=== PATIENT | female | born 1980 | race Caucasian/White ===

== ENCOUNTER 2018-07-24 09:33 | Inpatient (IN) | payer OTHER ==
[~2018-07-24] VITALS: Ht 162.6 cm; Wt 89.3 kg
--- NOTE | ~2018-07-24 | CON ---
[address] [address] CONSULTATION Name: TESSIE VÁSQUEZ Room: [address] IN M.R.#: [id number] Admission: 07/24/18 Attend Phys: Amber Krishnan Discharge: Date of : 82 Report #: [id number] THIS REPORT FOR: //name// CC: Laurent John HISTORY OF PRESENT ILLNESS: The patient is a 38-year-old female. The Neurology service was asked to see for altered mental status. The patient tells me that she came to the hospital because she was having a nervous breakdown. The patient has a history of depression and anxiety and sees Dr. Pacheco who is her psychiatrist. 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 Today, the patient feels that she does have some issue with her memory and she is concerned about it, but the patient was for the most part a very good historian. The patient also states that she feels generally weak. However, she also told me that she has spent a month in bed. When she came to the Emergency Room, she seemed confused. She also complained of fever and abdominal pain. The patient tells me that she lives in her own home with her dog, who is a puggle. When EMS arrived to the patient's home, the home was clean. PAST MEDICAL HISTORY: Depression, anxiety, B12 deficiency, hypothyroidism, morbid obesity. PAST SURGICAL HISTORY: Cholecystectomy, previous Arnold-en-Y surgery. MEDICATIONS: In the hospital include Unasyn 1.5 grams q.6h., vitamin D 10,000 units daily, famotidine 20 mg daily, folic acid 2 mg daily, lactulose 45 mL q.i.d., levothyroxine 37.5 mcg daily, niacin 500 mg daily, Xifaxan 550 mg b.i.d. ALLERGIES: NONSTEROIDAL ANTI-INFLAMMATORIES. VITAL SIGNS: Temperature is 36.4, pulse rate 88, respiratory rate 16, blood pressure 124/86, bedside pulse oximetry 100% on room air. LABORATORY WORK: Hematology: White blood cell count 10.1, hemoglobin 7.2, hematocrit 20.8, MCV 102.6, platelet count 115,000. INR 1.2. Urinalysis: Nitrite positive, bilirubin 3+, urobilinogen 2. Chemistry: Sodium 138, potassium 3.5, chloride 105, carbon dioxide 27, BUN 11, creatinine 0.9, glucose 99, calcium 6.6, phosphorus 4.7, magnesium 1.2, iron 57, TIBC 55, percent saturation 104. Ferritin 328, total bilirubin 1.8, GGT 183, AST 94, ALT 118, alkaline phosphatase 253. Ammonia 17. On admission, the patient's ammonia level was 84. B12 5879. Vitamin D 15. TSH 24.947, free T4 0.63. Toxicology positive [place] [address] CONSULTATION Name: TESSIE VÁSQUEZ Room: [address]#: [id number] Admission: 07/24/18 Attend Phys: Amber Krishnan Discharge: Date of : 82 Report #: [id number] IMAGING STUDIES: MRI of the head dated 07/24/2018 demonstrates it is normal. NEUROLOGIC: Cognition: The patient was alert and oriented to place and time. Immediate recall was 3/3 objects. Remote recall was 2/3 objects. She was able to spell world forward and transposed the L with the R when spelling it backwards. She was able to name and repeat. Cranial nerves 2-12 are grossly intact. Motor exam demonstrates symmetrical strength in all 4 extremities with tone and bulk normal. Reflexes are trace. Coordination reveals intact [id number]. Gait was not tested. IMPRESSION: This patient may have some difficulty with her memory, but for the most part, I found her to be an excellent historian and she did well on a screening cognitive exam. The patient has many factors, which can contribute to difficulty with cognition. This includes depression, anxiety, medication effect, chronic pain and insomnia. This patient does have depression and anxiety and does not feel that it is well controlled. In fact, she told me she came to the hospital because she was having a nervous breakdown. 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 She has a low serum copper level and I have added a ceruloplasmin level. She also has hepatic encephalopathy, although her ammonia level has now returned to baseline. It may still take her a few days before her cognition improves. I will ask Dr. Bolton to see the patient on Sunday morning. It may also be of some benefit to have the patient see the psychiatrist, although perhaps, this will have to be done as an outpatient so that her medications can be adjusted. I thank you for your kind referral of the patient. By: 1109 143Robyn Gaffney DO /nt
[2018-07-24 09:36] VITALS: BP 95/57
[2018-07-24] MEDS ORDERED: TYLENOL325 MG PO (09:43)
[2018-07-24] MEDS ORDERED: XANAX1 MG PO (09:44)
[2018-07-24] MEDS ORDERED: CLOTRIMAZOLE10 MG DISSOLVE (09:44)
[2018-07-24] MEDS ORDERED: DOXEPIN 75 MG C75 MG PO (09:45)
[2018-07-24] MEDS ORDERED: VITAMIN B122500 MCG PO (09:45)
[2018-07-24] MEDS ORDERED: OMEPRAZOLE 20 M20 M1 PO (09:46)
[2018-07-24] MEDS ORDERED: METHYLPHENIDATE10 MG PO (09:46)
[2018-07-24] MEDS ORDERED: IRON325 PO (09:46)
[2018-07-24] MEDS ORDERED: SYNTHROID75 MCG PO (09:47)
[2018-07-24] MEDS ORDERED: WELLBUTRIN XL150 MG PO (09:47)
[2018-07-24 09:57] LABS: HEMATOCRIT 31.3 % (37.0-47.0); HEMOGLOBIN 10.6 gm/dL (12.0-15.0); MCH 34.6 pg (26.0-34.0); MCHC 33.9 g/dL (28.0-37.0); MPV 8.2 fl. (7.2-11.1); NUCLEATED RBCS 0 /100WBC; PLATELET COUNT* 205 thou/uL (150-400); RBC 3.07 mil/uL (4.20-5.00); RDW-CV 15.3 % (10.5-14.5); WBC 11.8 thou/uL (4.0-11.0)
[2018-07-24 10:06] LABS: INR 1.4; PROTIME 14.7 Seconds (9.20-11.50)
[2018-07-24 10:13] LABS: URINE BLOOD NEGATIVE (Negative); URINE CLARITY CLEAR; URINE COLOR BROWN; URINE GLUCOSE-RANDOM TRACE (Negative); URINE KETONES TRACE (Negative); URINE LEUKOCYTES-REFLEX NEGATIVE (Negative); URINE PROTEIN TRACE (Negative); URINE SPECIFIC GRAVITY 1.025 (1.005-1.030)
[2018-07-24 10:14] LABS: ANION GAP 12 mmol/L (7-16); BUN 16 mg/dL (7-18); CALCIUM 7.6 mg/dL (8.5-10.1); CHLORIDE 104 mmol/L (98-107); CO2 22 mmol/L (21-32); CREATININE 2.1 mg/dL (0.6-1.3); GLUCOSE 71 mg/dL (70-99); POTASSIUM 3.9 mmol/L (3.5-5.1); SODIUM 138 mmol/L (136-145); TROPONIN-I LEVEL <0.06 ng/mL (<0.06)
[2018-07-24 10:17] LABS: ICTOTEST (BILI CONFIRMATORY) Positive (Negative); URINE BILIRUBIN 3+ (Negative); URINE NITRITE-REFLEX POSITIVE (Negative)
[2018-07-24 10:19] LABS: BACTERIA-REFLEX >30 Many /HPF (None Seen); CRYSTALS None Seen /LPF (None Seen); HYALINE CASTS 4-10 Moderate /LPF (None Seen); MUCUS 0-3 Light strn/LPF (None Seen); SQUAMOUS 0-3 Few /LPF (0-3); URINE RBC 0-2 Rare /HPF (0-2); URINE WBC-REFLEX 6-15 Few /HPF (0-5)
[2018-07-24 10:23] LABS: ALBUMIN 1.3 g/dL (3.4-5.0); ALKALINE PHOSPHATASE 305 U/L (46-116); NT-PRO BRAIN NAT PEPTIDE 3146 pg/mL (<300); SGOT 142 U/L (15-37); SGPT 154 U/L (30-65); TOTAL BILIRUBIN 3.8 mg/dL (<0.1-1.0); TOTAL PROTEIN 4.9 g/dL (6.4-8.2)
[2018-07-24 10:31] LABS: ABSOLUTE LYMPHOCYTES 0.8 thou/uL (0.8-5.3); ABSOLUTE MONOCYTES 0.5 thou/uL (0.0-1.2); ABSOLUTE NEUTROPHILS 10.5 thou/uL (1.6-8.1); ANISOCYTOSIS 1+; POIKILOCYTOSIS 1+; POLYCHROMASIA 1+
[2018-07-24 12:25] VITALS: BP 118/78
[2018-07-24 13:00] VITALS: BP 107/71
--- NOTE | 2018-07-24 13:11 | NUR ---
PATIENT CAME TO THE FLOOR FROM THE ER VIA CART. MOVED PATIENT OVER VIA EZ SLIDER. PATIENT IS AROUSABLE AND ORIENTETED WHEN PROMPTED. PARENTS ABLE TO ANSWER QUESTIONS FOR PATIENT. VITAL SIGNS ARE STABLE ON ROOM AIR. DOWNEY IS IN PLACE DRAINING DARK YELLOW, SEGUN, CLOUDY URINE. PATIENT IS JAUNDICE WELL. IV IN RIGHT AC WORKS WELL WITH IV ANTIBIOTICS. PATIENT IS STAYING WITH PARENTS FOR THE LAST WEEK SINCE BEING DISCHARGED FROM [facility]. PARENTS STATE THAT PATIENT HAS BEEB "GETTING WEAKER AND WEAKER." ROOM ORIENTATION AND ADMISSION ASSESSMENT DONE. QUESTIONS ANSWERED FOR PARENTS. PATIENT ARROUSABLE ENOUGH TO GO OVER CALL LIGHT AND BED CONTROLS. BED ALARM IS IN PLACE AND CALL LIGHT IS IN REACH, WILL CONTINUE TO MONITOR.
[2018-07-24] MEDS ORDERED: DOXEPIN 75 MG C75 M1 PO (14:03)
--- NOTE | 2018-07-24 15:01 | NUR ---
RIGHT CEPHALIC VESSEL ACCESSED FOR 5 CAMBODIAN DUAL LUMEN PICC. LINE PRE-TRIMMED TO 36CM AND ADVANCED TO THE ZERO CHAZ WITH NO RESISTANCE MET. UPPER ARM CIRCUMFERENCE ABOVE INSERTION SITE= 13 1/2". SHERLOCK MAGNET AND 3CG CONFIRMATION OF TIP TERMINATION AT THE CAVOATRIAL JUNCTION. GUIDEWIRE REMOVED, LINE FLUSHED AND INERTION SITE DRESSED. REPORT GIVEN TO ARIADNA OCASIO.
--- NOTE | 2018-07-24 15:35 | NUR ---
PATIENT IS MORE ALERT NOW SEEMS TO STILL HAVE SOME CONFUSION STILL. VITAL SIGNS STABLE OM ROOM AIR. TELE MONITOR IN PLACE AND RUNNING SINUS TACH AT THIS TIME. BED ALARM IS ON, CALL LIGHT IS IN REACH, REPORT PASSED ONTO NEXT NURSE.
--- NOTE | 2018-07-24 15:48 | 2DMMODE ---
[place] [address] 2 D/M-MODE ECHOCARDIOGRAM Name: TESSIE VÁSQUEZ Room: [address] IN [facility]#: [id number] Admission: 07/24/18 Attend Phys: Saad John Discharge: Date of : 82 Date of Service: 07/24/18 1548 Report #: [id number] THIS REPORT FOR: //name// APPROVED REPORT Study performed: 07/24/2018 14:26:50 EXAM: Comprehensive 2D, Doppler, and color-flow Echocardiogram Patient Location: In-Patient Room #: [facility] Status: routine BSA: 1.96 HR: 102 bpm BP: 107/71 mmHg Rhythm: NSR Other Information Study Quality: Good Indications Congestive Heart Failure 2D Dimensions IVSd: 9.24 (7-11mm) LVOT Diam: 22.89 (18-24mm) LVDd: 40.36 mm PWd: 10.00 (7-11mm) Ascending Ao: 31.38 (22-36mm) LVDs: 28.41 (25-40mm) Aortic Root: 30.54 mm Volumes Left Atrial Volume (Systole) LA ESV Index: 16.60 mL/m2 Aortic Valve AoV Peak Shukri.: 1.33 m/s AO Peak Gr.: 7.03 mmHg LVOT Max P.24 mmHg AO Mean Gr.: 3.90 mmHg LVOT Mean P.18 mmHg LVOT Max V: 1.03 m/s AO V2 VTI: 21.34 cm LVOT Mean V: 0.68 m/s SAMINA (VTI): 3.76 cm2 LVOT V1 VTI: 19.50 cm TDI Medial E' Shukri.: 0.11 m/s Lateral E' Shukri.: 0.14 m/[place] [address] 2 D/M-MODE ECHOCARDIOGRAM Name: TESSIE VÁSQUEZ Room: [address] IN ..#: [id number] Admission: 07/24/18 Attend Phys: Saad John Discharge: Date of : 82 Date of Service: 07/24/18 1548 Report #: [id number] Pulmonary Valve PV Peak Shukri.: 0.96 m/s PV Peak Gr.: 3.70 mmHg Left Ventricle The left ventricle is normal size. There is normal LV segmental wall motion. There is normal left ventricular wall thickness. Left ventricular systolic function is normal. The left ventricular ejection fraction is within the normal range. LVEF is 60-65%. Grade I - abnormal relaxation pattern. Right Ventricle The right ventricle is normal size. The right ventricular systolic function is normal. Atria The left atrium size is normal. The right atrium size is normal. Aortic Valve The aortic valve is normal in structure. No aortic regurgitation is present. There is no aortic valvular stenosis. Mitral Valve The mitral valve is normal in structure. There is no mitral valve regurgitation noted. No evidence of mitral valve stenosis. Tricuspid Valve The tricuspid valve is normal in structure. Trace tricuspid regurgitation. Unable to assess PA pressure. Pulmonic Valve The pulmonary valve is normal in structure. There is no pulmonic valvular regurgitation. Great Vessels The aortic root is normal in size. IVC is not well visualized. Pericardium There is no pericardial effusion. <Conclusion> The left ventricle is normal size. There is normal left ventricular wall thickness. Left ventricular systolic function is normal. The left ventricular ejection fraction [place] [address] 2 D/M-MODE ECHOCARDIOGRAM Name: TESSIE VÁSQUEZ Room: [address] IN [facility]#: [id number] Admission: 07/24/18 Attend Phys: Saad John Discharge: Date of : 82 Date of Service: 07/24/18 1548 Report #: [id number] range. LVEF is 60-65%. Grade I - abnormal relaxation pattern. The right ventricle is normal size. The left atrium size is normal. The aortic valve is normal in structure. The mitral valve is normal in structure. The tricuspid valve is normal in structure. There is no pericardial effusion. There is normal LV segmental wall motion. <ELECTRONICALLY SIGNED> By: Corbin Boston MD, FACC 07/24/18 1548 1548 1548 Corbin Boston MD, FAC /INF
[2018-07-24 16:00] VITALS: BP 104/74
--- NOTE | 2018-07-24 16:01 | EKG ---
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: : 1980 Requested By: Rohan Jacobson Order Number: [id number] MD: Corbin Boston Measurements Intervals [place] Rate: 108 P: 43 MT: 127 QRS: -46 QRSD: 102 T: 61 QT: 337 QTc: 452 Interpretive Statements Sinus tachycardia Ventricular trigeminy Left axis deviation Low voltage, extremity and precordial leads Abnormal R-wave progression, early transition No previous ECG available for comparison Electronically Signed On 07-24-2018 16:01:32 CDT by Corbin Boston [email or web address] <ELECTRONICALLY SIGNED> By: Corbin Boston MD, [facility] 07/24/18 1601 1020 1020 Corbin Boston MD, [facility] /EPI
[2018-07-24 16:02] LABS: MAGNESIUM 1.6 mg/dL (1.8-2.4); PHOSPHORUS* 4.6 mg/dL (2.5-4.9)
[2018-07-24 16:28] LABS: % SATURATION 104 % (20-39); IRON 57 ug/dL (50-175)
[2018-07-24 18:59] LABS: DIRECT BILIRUBIN 2.2 mg/dL (<0.1-0.3); TOTAL BILIRUBIN 3.1 mg/dL (<0.1-1.0)
[2018-07-24 19:52] LABS: CALCIUM 7.3 mg/dL (8.5-10.1); CREATININE 1.9 mg/dL (0.6-1.3); PHOSPHORUS* 4.7 mg/dL (2.5-4.9); POTASSIUM 3.9 mmol/L (3.5-5.1)
--- NOTE | 2018-07-24 19:52 | NUR ---
PATIENT RESTING IN BED. PATIENT ORIENTED TO SELF. BED ALARM ON. FAMILY AT BEDSIDE. PATIENT DENIES ANY PAIN. PATIENT WENT FOR MRI OF HEAD WITHOUT INCIDENT. DR RUCKER NOTIFIED OF ABNORMAL LABS AND ORDERED RECEIVED. PATIENT HAS FAIR APPETITE. PATIENT HAS DOWNEY CATHERTER IN PLACE WITH ORANGE URINE OUTPUT. PATIENT DENIES ANY NEEDS AT THIS TIME. CALL LIGHT WITHIN REACH.
[2018-07-24 23:40] VITALS: BP 104/65
[2018-07-25 04:00] VITALS: BP 136/74
[2018-07-25 06:42] LABS: HEMATOCRIT 26.3 % (37.0-47.0); MCH 34.4 pg (26.0-34.0); MCHC 34.1 g/dL (28.0-37.0); MCV 100.9 fL (80.0-100.0); MPV 8.2 fl. (7.2-11.1); RBC 2.61 mil/uL (4.20-5.00); WBC 10.2 thou/uL (4.0-11.0)
[2018-07-25 07:05] LABS: CREATININE 1.8 mg/dL (0.6-1.3); POTASSIUM 3.7 mmol/L (3.5-5.1)
[2018-07-25 08:51] VITALS: BP 100/69
[2018-07-25 10:09] LABS: ALBUMIN 1.1 g/dL (3.4-5.0); DIRECT BILIRUBIN 1.6 mg/dL (<0.1-0.3); TOTAL BILIRUBIN 2.4 mg/dL (<0.1-1.0); TOTAL PROTEIN 4.4 g/dL (6.4-8.2)
[2018-07-25 16:11] LABS: AMP/METHAMP Negative (Negative); BARBITURATES Negative (Negative); BENZODIAZEPINES POSITIVE (Negative); COCAINE Negative (Negative); METHADONE Negative (Negative); OPIATES Negative (Negative); PCP Negative (Negative); THC Negative (Negative)
--- NOTE | 2018-07-25 16:30 | NUR ---
SW met with pt to complete initial assessment, introduce self, and SW role. Pt alert, oriented. Pt lives at home alone but states that her parents support her and assist when they are able. Pt expressed that pt mother asking for HH care to possibly be able to provide care at home. SW explained HH vs private duty care. Pt works from home when she is able. SW to continue to follow to assist with safe dc planning and provide resources when needed.
--- NOTE | 2018-07-25 16:36 | NUR ---
PATIENT IS MORE ALERT TODAY THAN YESTERDAY BUT STILL MAKES NO SENSE AT TIMES WIEH ANSWERING QUESTIONS. NO PAIN TODAY. THERAPY WORKED WITH PATIENT TODAY AND DID WELL. VITAL SIGNS STABLE ON ROOM AIR. CALL LIGHT IS IN REACH, WILL CONTINUE TO MONITOR,
[2018-07-25 17:11] LABS: HEPATITIS B SURFACE AG Negative (Negative)
--- NOTE | 2018-07-25 17:39 | NUR ---
ASSUMED CARE OF PATIENT AT 1700 FROM AMARJIT PRUETT. PATIENT UP IN CHAIR AND REQUESTING TO GO BACK TO BED. PATIENT MAX ASSIST WITH 2, UTILIZING WALKER AND GAIT BELT. TPN AND SCHED ZOSYN REMAINS INFUSING. NO COMPLAINTS AT THIS TIME.
[2018-07-25 18:10] VITALS: BP 121/86
[2018-07-26] VITALS (15 sets, daily range): BP systolic 106–123; BP diastolic 77–87
[2018-07-26 04:06] LABS: HEMATOCRIT 22.6 % (37.0-47.0); HEMOGLOBIN 7.9 gm/dL (12.0-15.0); MCH 35.2 pg (26.0-34.0); MCHC 34.7 g/dL (28.0-37.0); MCV 101.3 fL (80.0-100.0); RBC 2.23 mil/uL (4.20-5.00); RDW-CV 15.2 % (10.5-14.5)
[2018-07-26 04:24] LABS: CREATININE 1.4 mg/dL (0.6-1.3); POTASSIUM 3.8 mmol/L (3.5-5.1)
--- NOTE | 2018-07-26 05:14 | NUR ---
PATIENT ALERT/ORIENTED X2; CONFUSED AND FORGETFUL AT BEGINNING OF SHIFT BUT IS MORE ALERT THIS MORNING AND ABLE TO HOLD CONVERSATION. PT DENIES PAIN/NAUSEA. PT WITH DOUBLE PICC LINE IN UPPER RT ARM WITH TPN INFUSING AT 80ML/HR AND ZOSYN SCHEDULED. PT IS NPO AND IS ABLE TO DO OWN MOUTH CARE WITH SPONGE SWABS. PT WITH ONE VERY LARGE BOWEL MOVEMENT. PT ABLE TO SWALLOW PILLS WITH SMALL SIP OF WATER. PT REPOSITIONED Q2H PER PROTOCAL. PT WITH SCD'S ON LOWER EXTREMITIES. FREQUENTLY USED ITEMS AND CALL LIGHT WITHIN REACH. SIDERAILS UPX3 AND BED ALARM ON. WILL CONTINUE TO MONITOR.
--- NOTE | 2018-07-26 16:04 | NUR ---
SHIFT NOTE - PT OFF UNIT THIS AM FOR TESTING. FAMILY PRESENT AT BEDSIDE THIS AFTERNOON. PT INC OF STOOL THIS AM. WILL CONTINUE TO MONITOR.
--- NOTE | 2018-07-27 08:08 | NUR ---
PATIENT SLEPT PART OF THE NIGHT. PATIENT HAS STILL BEEN CONFUSED AT TIMES. PATIENT HAS BEEN INCONTINENT OF STOOL ABOUT 6 TIMES THIS SHIFT. PATIENT WAS TURNED AND CHANGED ABOUT EVERY TWO HOURS. ABOUT 0400 WENT INTO TURN PATIENT AND SHE HAD PULLED OUT HER PICC LINE. TPN WAS STOPPED AT THIS TIME. ORDER TO PLACE PICC LINE BACK IN WAS RECEIVED THIS MORNING. DOWNEY REMAINS TO DEPENDENT DRAIN. WILL CONTINUE TO MONITOR.
[2018-07-27 08:30] VITALS: BP 118/81
[2018-07-27 09:48] LABS: HEMATOCRIT 22.8 % (37.0-47.0); HEMOGLOBIN 7.8 gm/dL (12.0-15.0); MCH 35.2 pg (26.0-34.0); MCHC 34.3 g/dL (28.0-37.0); MCV 102.5 fL (80.0-100.0); MPV 8.3 fl. (7.2-11.1); RBC 2.23 mil/uL (4.20-5.00); WBC 8.6 thou/uL (4.0-11.0)
[2018-07-27 10:11] LABS: CALCIUM 6.7 mg/dL (8.5-10.1); POTASSIUM 3.3 mmol/L (3.5-5.1)
--- NOTE | 2018-07-27 10:58 | NUR ---
ASSUMED CARE OF PT AT 0700. PT IN BED RESTING WITH EYES CLOSED. PT A&O X1-2, PT CURRENTLY INCONTINENT OF BOWEL. PT PULLED PICC LINE FROM [facility] AT APPX 0400 THIS MORNING. NURSE ON SECURITY DELIVERY SPECIALIST INFORMED NURSE ELECTRICAL ENGINEERING TECHNOLOGIST, PICC NURSE TO COME PLACE NEW LINE SOMETIME TODAY.CONT ON LACTULOSE. PT IS Q2 TURN.WILL CONT TO MONITOR. THIS NURSE PROVIDED PT EDUCATION ON USE OF CALL LIGHT AGAIN. 1050 NURSE ELECTRICAL ENGINEERING TECHNOLOGIST CALLED AND PICC NURSE IS ON THE WAY TO PLACE NEW LINE.
--- NOTE | 2018-07-27 13:24 | NUR ---
CONSULTED TO REPLACE A PICC THE PATIENT DISCONTINUED OVER THE NIGHT. PATIENT IS ON TPN AND LINE IS APPROPRIATE. ORDER AND CONSENT NOTED. THE PROCEDURE WELL BENIFITS AND RISK FOR DVT AND INFECTION DISCUSSED AND SHE VERBALIZED UNDERSTANDING. THE LEFT UPPER ARM BRACHIAL WAS WIDLEY PATENT. A #5F DOUBLE LUMEN POWER PICC WAS PLACED AFTER A BEDSIDE TIMEOUT WAS COMPLETE PER HOSPITAL POLICY. THE LINE WAS TRIMMED TO 43CM AND ADVANCED WITHOUT DIFFICULTY. LINE CONFIRMED WITH 3CG AT 2CM EXTERNAL. LINE SECURED AND RELEASED FOR USE
[2018-07-27 17:02] VITALS: BP 120/85
[2018-07-28] VITALS: BP 106/78
[2018-07-28 04:03] LABS: ABSOLUTE BASOPHILS 0.1 thou/uL (0.0-0.2); ABSOLUTE EOSINOPHILS 0.1 thou/uL (0.0-0.7); ABSOLUTE LYMPHOCYTES 1.8 thou/uL (0.8-5.3); ABSOLUTE MONOCYTES 0.9 thou/uL (0.0-1.2); ABSOLUTE NEUTROPHILS 7.2 thou/uL (1.6-8.1); BASOPHILS 1.2 %; EOSINOPHILS 1.1 %; HEMATOCRIT 20.8 % (37.0-47.0); HEMOGLOBIN 7.2 gm/dL (12.0-15.0); LYMPHOCYTES 17.6 %; MCH 35.7 pg (26.0-34.0); MCHC 34.8 g/dL (28.0-37.0); MCV 102.6 fL (80.0-100.0); MONOCYTES 8.5 %; MPV 8.1 fl. (7.2-11.1); NUCLEATED RBCS 1 /100WBC; PLATELET COUNT* 115 thou/uL (150-400); POLYS 71.6 %; RBC 2.03 mil/uL (4.20-5.00); RDW-CV 14.8 % (10.5-14.5); WBC 10.1 thou/uL (4.0-11.0)
[2018-07-28 04:12] LABS: CALCIUM 6.6 mg/dL (8.5-10.1); CREATININE 0.9 mg/dL (0.6-1.3); MAGNESIUM 1.2 mg/dL (1.8-2.4); POTASSIUM 3.5 mmol/L (3.5-5.1); TOTAL BILIRUBIN 1.8 mg/dL (<0.1-1.0); TOTAL PROTEIN 4.5 g/dL (6.4-8.2)
[2018-07-28 04:16] LABS: INR 1.2; PROTIME 12.4 Seconds (9.20-11.50)
[2018-07-28 07:22] VITALS: BP 124/86
--- NOTE | 2018-07-28 07:49 | NUR ---
PATIENT SLEPT MOST OF THE NIGHT. PATIENT PULLED OUT IV ONCE THIS SHIFT. IV WAS PUT BACK IN THIS MORNING. IV ANTIBIOTIC WAS GIVEN ORDERED. PATIENT HAD NO COMPLAINTS OF PAIN. PATIENT CONTINUES TO HAVE SEVERAL STOOLS FROM LACTULOSE. WILL CONTINUE TO MONITOR.
--- NOTE | 2018-07-28 12:02 | CON ---
[address] [address] CONSULTATION Name: FAHADTESSIE Room: [address] ADM IN M.R.#: [id number] Admission: 07/24/18 Attend Phys: Amber Krishnan Discharge: Date of : 82 Report #: [id number] THIS REPORT FOR: //name// CC: Dr. Laurent John MD DATE OF SERVICE: 07/28/2018 PULMONARY CONSULTATION LOCATION: Room 315. ATTENDING PHYSICIAN: Dr. John and Dr. Thierno Sheth PRIMARY CARE PHYSICIAN: Dr. Laurent Weeks at [place]. INDICATION FOR CONSULTATION: Pulmonary infiltrates. CLINICAL SUMMARY: The patient is a 38-year-old female, a remote smoker with a history of a gastric bypass 4 and 6 years ago. She was just recently discharged from [facility] in [facility] for weakness and possible urinary tract infection. The patient's parents seemed to think she is having a change in mental status and she was somewhat encephalopathic and had some mild abdominal pain. She had no cough, fever, chills, sweats or hemoptysis. She denies any diarrhea to me. She has very blank expression and is really not sure why she is in the hospital. She has been weak at home, not sure if she gets up and walks around very much. She can barely move her legs in bed or move her knees up to the chest when I asked her to. She denies aspiration to me, states her appetite has been fair. Denies any diarrhea or increase in stools. PAST MEDICAL HISTORY: She has had some transaminitis, had a possible sepsis, urinary tract infection, encephalopathy, etiology unclear, altered mental status. Her benzodiazepine screen was positive in her urine. She does not remember taking benzodiazepines. ALLERGIES: SHE HAS ALLERGIES OR INTOLERANCES TO NONSTEROIDALS WHICH GIVE HER ABDOMINAL PAIN. OUTPATIENT MEDICATIONS: Included vitamin B12, ferrous sulfate, omeprazole, for some reason she is taking methylphenidate 10 mg t.i.d. and then levothyroxine 75 mcg daily, bupropion 150 mg daily, takes doxepin 100 mg at bedtime for sleep. On a different list, she is supposedly on alprazolam 1 [place] [address] CONSULTATION Name: FAHADTESSIE Room: [address]#: [id number] Admission: 07/24/18 Attend Phys: mAber Krishnan Discharge: Date of : 82 Report #: [id number] PAST SURGICAL HISTORY: Cholecystectomy in May 2018 at [place], gastric bypass, Arnold-en-Y in 2011, possibly same procedure in [place] in 2013. FAMILY HISTORY: Positive for hypertension. SOCIAL HISTORY: Appears she lives with her parents. She used to smoke about a half pack a day. She did so off and on for 5 years. She states she has been off cigarettes for 10 years. Again, some benzodiazepine use at home and then supposedly drinks 1 or 2 beers weekly, she would not be any more specific than that. REVIEW OF SYSTEMS: Fourteen point review of systems was attempted, reviewed and negative except for pertinent positives noted in HPI. PHYSICAL EXAMINATION: GENERAL: A 38-year-old female with very flat affect. She wonders why I am there in the room talking to her. VITAL SIGNS: Stable, blood pressure is 124/86, heart rate 88, respirations 16, her room air sat was 95%, and temperature is 36.4 degrees. She is 5 feet 3 inches tall, weight is 90 kilograms or 210 pounds, BMI is 34. HEENT: Unremarkable. Mucous membranes are moist. She has metal braces on upper and lower teeth. Pharynx otherwise is clear. NECK: Supple without nodes. CHEST: Shows a few rhonchi at the left lung base that is clear after she takes a breath and cough. CARDIOVASCULAR: Regular rate and rhythm without murmur, gallop or rub. Heart rate is 88. ABDOMEN: Soft, without masses or megaly. EXTREMITIES: She has 1+ edema. No cyanosis or clubbing. NEUROLOGIC: She is alert and oriented x 3. Some muscle weakness and states she cannot move her knees up to her chest wall, has difficulty getting her head and neck and her chest up off the bed just sitting upright. Markedly deconditioned. Nonfocal exam. LABORATORY AND DIAGNOSTIC DATA: From 07/28/2018 shows a hemoglobin of 7.2, white count of 10,100, platelets 115,000. Normal differential. Sodium is 138, potassium is 3.5, carbon dioxide is 27, BUN is 11, creatinine 0.9, calcium is low at 6.6, magnesium is low at 1.2, total bilirubin is 1.8, AST is elevated at 94, ALT is elevated at 118, alk phos elevated 253, albumin is down to 1.0, total protein is 4.5. Chest x-ray and CT of the abdomen shows some patchy left lower lobe infiltrates, no definite consolidation. Lung hughes also are normal. Heart size is normal. Echocardiogram was within normal limits with an LVEF of 60-65%, no pulmonary artery hypertension. No valvular disease. IMPRESSION: 1. Pulmonary infiltrates. [address] [address] CONSULTATION Name: TESSIE VÁSQUEZ Sandor Room: [address] IN M.R.#: [id number] Admission: 07/24/18 Attend Phys: Amber Krishnan Discharge: Date of : 82 Report #: [id number] 2. Altered mental status could be related to benzodiazepines. 3. Elevated transaminase related to protein calorie malnutrition. 4. Prior surgeries. 5. Weakness and deconditioning, etiology unclear. PLAN: The patient does not need bronchoscopy. She is already on IV Unasyn. Would continue to follow. She needs to work on incentive spirometry and get up and move around. I think most of her x-ray findings are attributable to her weight and also to hypoventilation and poor cough effort. She could have an early bronchitis, it is not likely at this time, she is not hypoxic, she does not have a congested cough. Work on incentive spirometry and work on physical therapy with rehab. I would also take her off her methylphenidate not sure why she is on this and on benzodiazepines also. Would decrease the role of benzodiazepines, keep her on doxepin at night at sleep. She had a sleep study from [facility] 6 or 8 years ago, interpreted by Dr. Cat Ochoa, which was within normal limits. She does not have sleep apnea. I do not think she is hypersomnolent during the day and would certainly get her off the methylphenidate. We will see her for one more day and then we will sign off. Thanks again for allowing us to participate in this lady's care. <ELECTRONICALLY SIGNED> By: Bakari Barnes MD 07/28/18 1202 0922 [id number] Barnes MD /nt
--- NOTE | 2018-07-28 14:54 | NUR ---
CONSULTED TO REPLACE A PICC- 3RD PLACEMENT AFTER THE PATIENT DISCONTINUED THE LINES. PICC NEEDED FOR TPN INFUSION. BILATERAL ARMS WITH MULTIPLE BRUISING NOTED. NO SWELLING. THE RIGHT CEPHALIC VEIN IS NON COMPRESSABLE WHICH WAS THE SITE FOR THE 1ST PICC 3 DAYS PRIOR. THE LEFT ARM BRUISED AND TENDER FROM THE LINE THE PATIENT DICONTINUED THIS LAST PM. THE RIGHT UPPER ARM BRACHIAL IS WIDLEY PATENT AND EASILY COMPRESSABLE. A #5F DOUBLE LUMEN POWER PICC WAS PLACED PER HOSPITAL POLICY. LINE WAS TRIMMMED TO 35CM AND ADVANCED WITHOUT DIFFICULTY. LINE CONFIRMED AT 1CM EXTERNAL WITH 3CG. LINE SECURED AND RELEASED FOR USE
[2018-07-28 15:07] LABS: IgA 348 mg/dL (87-352); IgG 1050 mg/dL (700-1600); IgM 165 mg/dL (26-217)
[2018-07-28 15:30] VITALS: BP 116/78
--- NOTE | 2018-07-28 15:36 | NUR ---
ASSESSMENT COMPLETE. PT ALERT AND ORIENTED X4 TODAY. PT HAD NEW PICC IN RIGHT ARM PLACED THIS AFTERNOON. PT DENIES PAIN. TPN STARTED. MAG REPLACED. 1 UNIT TRANSFUSION ORDERED, PT IS SPEAKING WITH MOM BEFORE SIGNING CONSENT, EDUCATION GIVEN. PT DENIES N/V. PT IS ON ROOM AIR, VSS. Q2 TURN. NEW SKIN TEAR FOUND ON SACRUM, PICS DONE IN CHART. PT IS SLEEPING AND HAS NO OTHER CONCERNS. SITTER AT BEDSIDE. SEE ASSESSMENT AND VITALS FOR OTHER DETAILS. CALL LIGHT WITHIN REACH, WILL CONTINUE PLAN OF CARE
[2018-07-28 17:06] LABS: CALCIUM 6.5 mg/dL (8.5-10.1); CREATININE 0.8 mg/dL (0.6-1.3); MAGNESIUM 1.3 mg/dL (1.8-2.4); POTASSIUM 3.2 mmol/L (3.5-5.1)
--- NOTE | 2018-07-28 17:59 | CON ---
[address] [address] CONSULTATION Name: TESSIE VÁSQUEZ Room: [address] IN M.R.#: [id number] Admission: 07/24/18 Attend Phys: Amber Krishnan Discharge: Date of : 82 Report #: [id number] THIS REPORT FOR: //name// CC: Laurent John TYPE OF REPORT: Infectious diseases consultation. HISTORY OF PRESENT ILLNESS: She is a 38-year-old patient who was admitted to [facility] due to failure to thrive. She has been seen by GI Service and Internal Medicine. She was recently hospitalized at [facility] where I saw her on 07/11/2018 with similar symptoms. She has underlying morbid obesity. She has undergone gastric bypass with Arnold-en-Y in 2011 followed by a revision surgery done in [place]. Subsequently, she has lost about 150 pounds and is showing general decline with nausea and vomiting nearly daily. Intermittent abdominal pain. Confusion. She underwent a cholecystectomy on 05/24/2018 without improvement in her symptoms. During her evaluation at [facility], she underwent upper GI, small bowel study, which showed no mucosal changes or obstruction. She underwent an EGD, which showed gastric and duodenal ulcers that were treated locally and placed on antiacid treatment. Had a colonoscopy, which showed no gross abnormalities but a random biopsy showed nonspecific colitis. She had a CT scan, which revealed right upper lobe nodular type infiltrate, indeterminate in etiology as well as hepatic steatosis and a colonic wall thickening. HIV; hepatitis A, B, C and CMV studies were all negative. She initially was treated with antibiotics. Subsequently discharged for GI followup. Now returns with very similar symptoms. No documented fever, chills or sweats. She did undergo a liver biopsy. Those studies are pending. She did undergo CT scan of the abdomen, pelvis and chest, which showed bilateral, more interstitial type infiltrates. This has progressed since her previous study. She has had episodes of confusion. She has pulled several IV catheters out. She has a previous traveled to [facility] in December of this past year. While there, she did develop some malaise and general unwell feeling, which has progressed. She did irregular tourist activities, but nothing out of the ordinary. She has had these similar symptoms for over 6 months. REVIEW OF SYSTEMS: Negative other than what has been described above. Most notable no cough, sputum or chest pain. ALLERGIES: NONSTEROIDAL ANTI-INFLAMMATORIES. MEDICATIONS: As noted on her MAR, which were reviewed. PAST MEDICAL HISTORY: Bariatric surgery, gastroesophageal reflux, cholecystectomy, [place] [address] CONSULTATION Name: TESSIE VÁSQUEZ Room: [address] IN M.R.#: [id number] Admission: 07/24/18 Attend Phys: Amber Krishnan Discharge: Date of : 82 Report #: [id number] FAMILY HISTORY: Noncontributory. SOCIAL HISTORY: Nonsmoker. No significant alcohol intake. She has a pet dog with no HIV risk factors. PHYSICAL EXAMINATION: VITAL SIGNS: Afebrile and hemodynamically stable. GENERAL: She is alert and cooperative and pleasant, in no acute distress other than generalized weakness. EYES: Nonicteric. MOUTH: Without mucositis. NECK: Supple. She was morbidly obese. LUNGS: Clear. HEART: Regular, without murmur. ABDOMEN: Obese, soft and nontender. No masses, although the liver was palpable. EXTREMITIES: No clubbing, cyanosis or edema. NEUROLOGICAL: Cranial nerves intact. Strength in upper and lower extremities normal. Deep tendon reflexes normal, sensation intact, upper and lower extremities. Cranial nerves intact. Mood was normal. LABORATORY STUDIES: CPK 464. Lactate 0.9. Sodium 136, potassium 3.3, bicarbonate 26 and creatinine 1. Hemoglobin 7.8; white count 8.6 and platelet count 113,000. Urine culture E. coli. Blood cultures are negative. Ultrasound shows liver steatosis. CT scan as noted above. IMPRESSION: A 38-year-old with gastric bypass, Arnold-en-Y and multiple issues with associated steatohepatitis anemia, metabolic encephalopathy, malnutrition, bilateral pulmonary infiltrates and I am suspecting aspiration would be most likely, peptic ulcer disease and nonspecific colitis. RECOMMENDATIONS: We will continue aspiration precautions. Continue with Unasyn. Follow up chest x-rays. Await liver biopsy. Await GI evaluation. <ELECTRONICALLY SIGNED> By: Conner Meyer MD 07/28/18 1759 [id number] [id number] Meyer MD /nt
--- NOTE | 2018-07-28 19:18 | NUR ---
AT THIS TIME PATIENT IS REFUSING BLOOD TRANSFUSION. PT SPOKE WITH MOTHER AND THEY DO NOT WANT TODAY. TYPE AND SCREEN COMPLETED.
[2018-07-28 21:00] VITALS: BP 120/70
[2018-07-29 02:06] LABS: ESTIMATED AVERAGE GLUCOSE < 74 mg/dL (()); GLYCOHEMOGLOBIN (HGB A1C) < 4.2 % (4.8-5.6)
[2018-07-29 06:08] LABS: MCH 35.2 pg (26.0-34.0); MCHC 34.2 g/dL (28.0-37.0); MCV 103.1 fL (80.0-100.0); MPV 7.8 fl. (7.2-11.1); RBC 1.6 mil/uL (4.20-5.00); RDW-CV 14.6 % (10.5-14.5); WBC 10.7 thou/uL (4.0-11.0)
[2018-07-29 06:12] LABS: CREATININE 0.7 mg/dL (0.6-1.3); POTASSIUM 3.4 mmol/L (3.5-5.1)
[2018-07-29 06:17] LABS: HEMOGLOBIN 5.7 gm/dL (12.0-15.0)
[2018-07-29 06:21] LABS: HEMATOCRIT 16.5 % (37.0-47.0)
--- NOTE | 2018-07-29 07:26 | NUR ---
PATIENT SLEPT MOST OF THE NIGHT. TPN AND ANTIBIOTICS WERE GIVEN ORDERED. DOWNEY REMAINS TO DEPENDENT DRAIN. HEMOGLOBIN DROPPED TO 5.7 DR. GAMA WAS NOTIFIED PATIENT REFUSED BLOOD YESTERDAY. PATIENT HAS BEEN A 1:1 TO MAKE SURE PATIENT DOES NOT PULL OUT HER PICC LINE TODAY. WILL CONTINUE TO MONITOR.
[2018-07-29 08:00] VITALS: BP 113/76
--- NOTE | 2018-07-29 13:04 | NUR ---
Nutrition: Calorie count hung on door. PLEASE RECORD ALL FOODS/DRINKS THAT PT CONSUMES, AND % OF EACH ITEM EATEN. RD will assess timothy count on Sunday.
[2018-07-29 16:00] VITALS: BP 125/98
[2018-07-29 17:00] VITALS: BP 116/82; BP 117/80; BP 118/81; BP 123/83; BP 138/78
--- NOTE | 2018-07-29 18:09 | NUR ---
SHIFT NOTE - DOWNEY TO DD WAS DISCONTINUED PER . ONE UNIT PRBC'S CURRENTLY INFUSING. WILL CONTINUE TO MONITOR.
[2018-07-29 20:00] VITALS: BP 138/78
[2018-07-29 21:10] LABS: ANA INTERPRETATION Negative (())
[2018-07-30 00:30] VITALS: BP 115/70
[2018-07-30 03:27] VITALS: BP 104/63; BP 105/66; BP 112/67; BP 116/74
[2018-07-30 04:00] VITALS: BP 112/67
--- NOTE | 2018-07-30 07:27 | NUR ---
PATIENT SLEPT WELL DURING THE NIGHT. PT CONTINUES TO HAVE A 1:1 SITTER TO PREVENT HER FROM PULLING AT LINES. PT RECEIVED TWO UNITS OF PRBC DURING THIS SHIFT. THE FIRST UNIT WAS STARTED AT THE END OF DAY SHIFT. AM LABS TO BE DRAWN IN TWO HOURS. PT WITH DOUBLE LUMAN PICC LINE; ABLE TO DRAW/FLUSH WITH NO RESISTANCE. PT WITH TPN INFUSING AT 80ML/HR; ANTIBIOTICS INFUSING PER DR ORDER. PT INCONTINENT OF BOWEL AND BLADDER. PT WITH ONE BOWEL MOVEMENT DURING THIS SHIFT. PT DENIES PAIN/NAUSEA. PT REMAINS CONFUSED AT TIMES. PT TURNED Q2H PER PROTOCAL. FREQUENTLY USED ITEMS AND CALL LIGHT WITHIN REACH. SIDERAILS UPX3 AND BED ALARM ON. WILL CONTINUE TO MONITOR.
[2018-07-30 07:51] VITALS: BP 117/79
[2018-07-30 08:27] LABS: HEMATOCRIT 23.1 % (37.0-47.0); HEMOGLOBIN 7.7 gm/dL (12.0-15.0); MCH 32.6 pg (26.0-34.0); MCHC 33.1 g/dL (28.0-37.0); MCV 98.5 fL (80.0-100.0); MPV 7.7 fl. (7.2-11.1); RBC 2.35 mil/uL (4.20-5.00); RDW-CV 16.9 % (10.5-14.5); WBC 11.9 thou/uL (4.0-11.0)
[2018-07-30 08:30] LABS: CALCIUM 6.7 mg/dL (8.5-10.1); CREATININE 0.5 mg/dL (0.6-1.3); POTASSIUM 3.3 mmol/L (3.5-5.1)
--- NOTE | 2018-07-30 09:56 | CON ---
[address] [address] CONSULTATION Name: TESSIE VÁSQUEZ Room: [address] IN M.R.#: [id number] Admission: 07/24/18 Attend Phys: Amber Krishnan Discharge: Date of : 82 Report #: [id number] THIS REPORT FOR: //name// CC: Laurent John DATE OF SERVICE: 07/29/2018 DIAGNOSIS: Anemia. SUBJECTIVE: A 38-year-old female presented back on July 25 due to generalized weakness in addition to confusion. She was found that prior to this admission to have a UTI. The patient during her hospital stay was found to have elevated LFTs and she underwent CT scan of the abdomen and pelvis, which showed irregular moderate colonic wall thickening compatible with colitis. There was mild enteritis with left lower infiltrates compatible with pneumonia; however, there was diffuse low density throughout the liver, likely acute hepatitis, though acute steatosis could give the same appearance, anasarca with moderate mesenteric edema. The patient, the next day, he underwent MRCP, which showed enlarged fatty liver. There was a lesion of superior liver, possibly hemangioma with a left lower lobe mass or infiltrates and diffuse right colon thickening. CT of the chest confirmed the bilateral multifocal lung consolidation, interstitial infiltrates in the left upper and lower lobes with additional right middle lobe involvements. The patient underwent liver biopsy on July 26. The pathology is still pending. I reviewed her labs. Her hemoglobin was 10.6. However, during her hospital stay, today, her hemoglobin came back as 5.7. The patient has been on intravenous IV fluids in addition to TPN. Hepatitis came back negative. Serologies for immune hepatitis are still pending. The patient at this point continues to have a sitter due to confusion and she pulled her PICC line. PAST MEDICAL HISTORY: Bariatric surgery, GERD, anxiety/depression. PAST SURGICAL HISTORY: Cholecystectomy. SOCIAL HISTORY: No smoking, no alcohol abuse, no drug abuse. FAMILY HISTORY: Noncontributory. ALLERGIES: NSAIDS. MEDICATIONS: Per admission list. PHYSICAL EXAMINATION: VITAL SIGNS: Temperature 36.3, pulse is 100, respirations 15, blood pressure is 125/98, SpO2 was 100% [place] [address] CONSULTATION Name: TESSIE VÁSQUEZ Room: [address]#: [id number] Admission: 07/24/18 Attend Phys: Amber Krishnan Discharge: Date of : 82 Report #: [id number] GENERAL: The patient was lying in bed. She was not in acute distress. LUNGS: Clear to auscultations bilaterally; however, decreased breathing sounds. ABDOMEN: Soft, nontender, nondistended, bowel sounds positive. EXTREMITIES: +1 edema bilaterally. LABORATORY DATA: Today, WBC 10.7, hemoglobin today 5.7, MCV is 103, platelet count 126. PT 12.4, PTT 32.0. Creatinine 0.7. Ferritin was 328, TIBC low 55, saturations high. Total bilirubin was 1.8, direct bilirubin 1.6, AST 94, ALT 118, alkaline phosphatase 253, LDH is 601, B12 5879, folate is 18.2. ASSESSMENT AND PLAN: A 38-year-old female who has been admitted because of transaminitis with possible hepatitis. The patient was evaluated because of macrocytic anemia. Her B12 and folate within normal limits. There is no clear history of alcoholism; however, megaloblastic anemia could be findings with acute liver with significant liver injury, which is most likely the cause of her condition. RECOMMENDATIONS: 1. Agree with transfusion to keep her hemoglobin above 7. 2. We will obtain haptoglobin Deanne test to rule out any possibility of acute hemolytic anemia. 3. Agree with current supplement with B12 and folate. The patient's iron studies showed adequate iron stores. I will also obtain occult blood at stool. We will follow the patient during hospitalization. <ELECTRONICALLY SIGNED> By: Shelbie Smith MD 07/30/18 0956 [id number] [id number] Smith MD /nt
--- NOTE | 2018-07-30 12:07 | NUR ---
SW continuing to follow. Continued possible needs for support and in home resources when pt closer to dc.
[2018-07-30 15:52] VITALS: BP 122/73
--- NOTE | 2018-07-30 17:16 | NUR ---
ASSESSMENT COMPLETE. PT ALERT AND ORIENTED X4 TODAY. K+ REPLACED. PICC IN RIGHT UPPER ARM, TPN INFUSING. PT WILL HAVE EGD TOMORROW WITH DR Ferrer. PT IS RESTING AT THIS TIME. SEE ASSESSMENT AND VITALS FOR OTHER DETAILS. Q2 TURN. SEE ASSESSMENT AND VITALS FOR OTHER DETAILS. CALL LIGHT WITHIN REACH, WILL CONTINUE PLAN OF CARE
[2018-07-30 18:06] LABS: COMPLEMENT-C4 15 mg/dL (14-44)
[2018-07-31] VITALS: BP 116/76
--- NOTE | 2018-07-31 05:04 | NUR ---
PATIENT SLEPT WELL DURING THIS SHIFT. PT TURNE Q2H PER PROTOCAL. PT INCONTINENT OF URINE. PT NOT ABLE TO NOTIFY STAFF WHEN WET. PT HAS BEEN SHOWN MANY TIMES HOW TO USE THE CALL LIGHT BUT SAYS SHE CANNOT REMEMBER. PT HAD DIFFICULTY SWALLOWING A PILL LAST NIGHT SAYING IT WAS STUCK IN HER THROAT AND WAS GIVEN A SALTINE TO ASSIST WITH SWALLOWING PILL. PT HAD TO BE PROMPTED TO CHEW CRACKER AND FOLLOW IT WITH WATER. PT UNABLE TO HOLD CONVERSATION, HAS A FARAWAY GAZE; FLAT AFFECT. PT TURNED Q2H PER PROTOCAL. PT DENIES PAIN/NAUSEA. TPN INFUSING IN DOUBLE PICC LINE IN UPPER RT ARM. ABLE TO DRAW/FLUSH WITH NO RESISTANCE. PT MADE NPO AT MIDNIGHT FOR POSSIBLE EGD TODAY. FREQUENTLY USED ITEMS AND CALL LIGHT WITHIN REACH. SIDERAILS UPX3 AND BED ALARM ON. WILL CONTINUE TO MONITOR.
[2018-07-31 05:09] LABS: VITAMIN B6 (PYRIDOXAL 5-PHOS) < 1.0 ug/L (2.0-32.8)
[2018-07-31 05:24] LABS: HEMATOCRIT 22.4 % (37.0-47.0); HEMOGLOBIN 7.6 gm/dL (12.0-15.0); MCH 33.4 pg (26.0-34.0); MCHC 34.1 g/dL (28.0-37.0); MCV 98.1 fL (80.0-100.0); NUCLEATED RBCS 1 /100WBC; PLATELET COUNT* 122 thou/uL (150-400); RBC 2.29 mil/uL (4.20-5.00); RDW-CV 17.3 % (10.5-14.5)
[2018-07-31 05:44] LABS: ALBUMIN 1.6 g/dL (3.4-5.0); CALCIUM 7.1 mg/dL (8.5-10.1); CREATININE 0.5 mg/dL (0.6-1.3); POTASSIUM 3.8 mmol/L (3.5-5.1); TOTAL BILIRUBIN 1.1 mg/dL (<0.1-1.0); TOTAL PROTEIN 4.7 g/dL (6.4-8.2)
[2018-07-31 06:31] LABS: ESR (SEDRATE) 45 mm/hr (0-20)
[2018-07-31 06:55] LABS: ABSOLUTE EOSINOPHILS 0.7 thou/uL (0.0-0.7); ABSOLUTE LYMPHOCYTES 1.8 thou/uL (0.8-5.3); ABSOLUTE MONOCYTES 0.6 thou/uL (0.0-1.2); ATYPICAL LYMPHS 5 %; METAMYELOCYTES 5 %; PLATELET ESTIMATE ADEQUATE
[2018-07-31 08:03] VITALS: BP 116/76
[2018-07-31 10:03] VITALS: BP 129/69
--- NOTE | 2018-07-31 12:54 | NUR ---
NETWORK ADMINISTRATOR INFORME OF NEED TO SPEAK TO DR ROSENBAUM TO DISCUSS TRANSFER [facility] DOES NOT HAVE BED AVIALABLITY AT THIS TIME. DR STEVE HAD SUGGESTED [facility], BUT THEY DID NOT HAVE ANY BEDS AVIALABLE WELL. DR WEI REQUEST THAT CM ATTEMPT TRANSFER TOMORROW WITH [facility]. CM WILL REMAIN AVAILABLE TO ASSIST AND FOLLOW NEEDED.
[2018-07-31 13:01] VITALS: BP 126/86
[2018-07-31 16:41] VITALS: BP 143/69
--- NOTE | 2018-07-31 16:54 | NUR ---
ASSESSMENT COMPLETE. PT HAD EGD TODAY, SEE DR Ferrer NOTES. PROTONIX GTT STARTED. TPN INFUSING. PT IS Q2 TURN. PT TOLERATING FULL LIQUIDS FOR LUNCH. PT IS ON ROOM AIR, VSS. PT DENIES PAIN AND N/V. SEE ASSESSMENT AND VITALS FOR OTHER DETAILS. CALL LIGHT WITHIN REACH, BED ALARM ON. WILL CONTINUE PLAN OF CARE
[2018-07-31 18:09] LABS: ANA INTERPRETATION Negative (Negative); ANTI-DNA SCREEN <1 IU/mL (0-9)
[2018-08-01 01:03] VITALS: BP 121/76
--- NOTE | 2018-08-01 06:04 | NUR ---
PATIENT AWAKE, ORIENTED TO PERSON DURING THIS SHIFT. PT INCONTINENT OF BOWEL AND BLADDER. PT WITH VERY FLAT AFFECT. PT ASKED IF SHE KNOWS WHEN SHE IS WET OR DIRTY AND SHE NODDED AND REPLIED YES WITH A VOICE BARELY AUDIBLE. PT TOLD TO CALL IF NEEDING BEDPAN OR IF NEEDING CLEANED UP. PT DOES NOT USE CALL LIGHT EVEN AFTER BEING INSTRUCTED. PT GIVEN CARAFATE AND WHEN SHE POURS IT INTO HER MOUTH SHE DOES NOT CLOSE HER MOUTH TO SWALLOW AND IT ROLLS DOWN HER FACE AND NECK. PT HANDED A KLEENEX TO WIPE FACE/NECK BUT GAZES OFF TO THE SIDE UNABLE TO TAKE KLEENEX. PT UNABLE TO ASSIST WITH TURNS BY HOLDING ONTO SIDERAIL AND TURNING TO SIDE HOWEVER PT WAS SEEN TEXTING ON CELL PHONE AND SMILING UNTIL STAFF WALKED INTO ROOM. SHE THEBN BEGAN GAZING OFF TO THE SIDE AGAIN, WITH A FLAT AFFECT. SEVERAL ATTEMPTS MADE TO HAVE A CONVERSATION WITH THIS PATIENT BUT SHE, ON RARE OCCASSION WILL MAKE EYE CONTACT. PT WITH TPN, ANTIBIOTICS AND PROTONIX INFUSING IN RT UPPER PICC LINE ORDERED. ABLE TO DRAW/FLUSH PICC LINES WITH NO RESISTANCE. PT DENIES NEEDS AT THIS TIME. SIDERAILS UPX4, CALL LIGHT WITHIN REACH AND BED ALARM ON. WILL CONTINUE TO MONITOR.
[2018-08-01 08:05] VITALS: BP 105/72
[2018-08-01 16:59] VITALS: BP 136/58
--- NOTE | 2018-08-01 17:14 | NUR ---
[facility] attempted transfer requests to both and [facility] throughout the day today; both requests denied by both hospitals. [facility] dicussed with Dr Arreola. Request/recommendation now is for possible dc to inpt rehab or SNF. SW to continue to follow to assist with safe dc planning.
--- NOTE | 2018-08-01 17:50 | NUR ---
PATIENT RESTING IN BED. PATIENT DENIES ANY PAIN. PATIENT WORKED WITH THERAPY THIS AM AND WAS UP TO CHAIR WITH MODERATE ASSIST. PATIENT HAS BEEN INCONTINENT OF BOWEL AND BLADDER. PATIENT IS ORIENTED TO SELF AND PLACE. PATIENT IS CALM AND COOPERATIVE WITH FLAT AFFECT. PATIENT SEEN BY REHAB PHYSICIAN THIS EVENING. AWAITING REEVALUATION FROM PSYCH. PATIENT DENIES ANY NEEDS AT THIS TIME. BED ALARM ON. CALL LIGHT WITHIN REACH. WILL CONTINUE TO MONITOR.
[2018-08-01 19:30] VITALS: BP 127/71
--- NOTE | 2018-08-01 23:52 | NUR ---
PLACED CHANDLERWIJAN AT 2130
--- NOTE | 2018-08-02 05:21 | NUR ---
ASSUMED PATIENT CARE AT 1900. CORE STRIPPER COMPLETED CHARTED. CHANDLER HERNANDEZ REPLACED AT 0500. NO COMPLAINTS OF PAIN OR DISCOMFORT NOTED. PATIENT RESTED IN BED THROUGH THE NIGHT. HAS A VERY VACANT GAZE AT TIMES AND AT OTHER TIMES PATIENT IS ALERT AND ORIENTED TIMES FOUR. IV PATENT TO FLUIDS AND BLOOD DRAW AT THIS TIME. SEE EMAR FOR MEDICATION ADMINISTRATION. FALL RISK PRECAUTIONS IN PLACE. HOURLY ROUNDING COMPLETED CHARTED.
[2018-08-02 05:27] LABS: HEMATOCRIT 21.3 % (37.0-47.0); HEMOGLOBIN 7.2 gm/dL (12.0-15.0); MCH 33.7 pg (26.0-34.0); MCHC 33.8 g/dL (28.0-37.0); MCV 99.7 fL (80.0-100.0); MPV 7.8 fl. (7.2-11.1); NUCLEATED RBCS 0 /100WBC; PLATELET COUNT* 128 thou/uL (150-400); RBC 2.14 mil/uL (4.20-5.00); RDW-CV 17.7 % (10.5-14.5); WBC 7.2 thou/uL (4.0-11.0)
[2018-08-02 05:34] LABS: ALBUMIN 1.5 g/dL (3.4-5.0); CALCIUM 7.5 mg/dL (8.5-10.1); CREATININE 0.5 mg/dL (0.6-1.3); POTASSIUM 4.2 mmol/L (3.5-5.1); TOTAL BILIRUBIN 0.7 mg/dL (<0.1-1.0); TOTAL PROTEIN 4.7 g/dL (6.4-8.2)
[2018-08-02 05:47] LABS: ABSOLUTE BASOPHILS 0.2 thou/uL (0.0-0.2); ABSOLUTE EOSINOPHILS 0.4 thou/uL (0.0-0.7); ABSOLUTE LYMPHOCYTES 1.4 thou/uL (0.8-5.3); ABSOLUTE MONOCYTES 0.4 thou/uL (0.0-1.2); ABSOLUTE NEUTROPHILS 4.8 thou/uL (1.6-8.1); METAMYELOCYTES 1 %
[2018-08-02 05:48] LABS: PLATELET ESTIMATE DECREASED; POLYCHROMASIA 1+
[2018-08-02 05:49] LABS: ANISOCYTOSIS 1+; POIKILOCYTOSIS 1+; TOXIC GRANULATION Occasional
[2018-08-02 07:45] VITALS: BP 114/72
--- NOTE | 2018-08-02 14:53 | NUR ---
RECEIVED ORDERS FOR ACUTE REHAB. WILL FOLLOW PT THROUGHOUT HOSPITAL STAY. THANK YOU FOR THE REFERRAL.
[2018-08-02 16:00] VITALS: BP 129/79
--- NOTE | 2018-08-02 16:53 | NUR ---
PATIENT UP TO CHAIR WITH PT. MORALES CHANGED NEEDED FOR URINE COLLECTION TO SUCTION. PATIENT PUTTING OUT LARGE AMOUNTS OF URINE. TPN DECREASED TO 40MLS/HR, PATIENT TOLERATING REG DIET. IV ABX CHANGED TO PO AND STARTED THIS SHIFT. C/O HEADACHE THIS AFTERNOON, PRN TYLENOL GIVEN. DR. WEI WAS NOTIFIED OF TELE PSYCH EVAL, ORDERS RECEIVED. NEURO CONS PLACED, NO INTERVENTION AT THIS TIME. ORDERS FOR RECORDS FROM PATIENT PSYCHIATRIST, PATIENT GAVE PHYSICIAN NAME BUT NO RECORDS FOUND. SPOKE WITH PATIENTS MOM AND WILL TRY AND RETRIEVE PHYSICIANS NAME. DR. WEI GIVEN UPDATE. PATIENT DID ENGAGE IN SMALL CONVERSATION THIS SHIFT. INCONTINENT OF BOTH URINE AND STOOL.
--- NOTE | 2018-08-02 19:36 | CON ---
[address] [address] CONSULTATION Name: FAHADTESSIE Room: [address] ADM IN M.R.#: [id number] Admission: 07/24/18 Attend Phys: Amber Krishnan Discharge: Date of : 82 Report #: [id number] THIS REPORT FOR: //name// CC: Moiz Weeks DO Saad John MD REFERRING PHYSICIAN: Saad John MD I have seen and examined and agreed with plan that has been outlined by our nurse practitioner, Bhavana Melara. I also reviewed all the patient's records from her [facility] stay, as well as all the records from this hospital stay. A total of 45 minutes were used to review these records, review scans, laboratory testing etc. At the present time, it is unclear to me what is going on with the patient. She has multitude of issues ongoing at this point in time without a clear etiology for the same. She certainly has some type of infection with regards to pneumonia, but in addition, she has got probably anemia of chronic disease, fatty infiltration of the liver with elevated LFTs and negative serologic workup today. She is more awake after being on lactulose at this point in time, but is still having some issues with some confusion. She is adamant that she had surgery to remove her gallbladder in May of this year, but it is unclear where that was done and what was found. At the present time, I am going to await the results from biopsies and check some additional serologic studies to evaluate her elevated LFTs. In addition, we will begin her on some copper for low copper level that was noted at [facility]. I reviewed her endoscopic reports and records from [facility] and other than gastric bypass, some internal hemorrhoids and some mild diverticulosis, her endoscopic evaluations were unrevealing. We will continue to follow her while she is in the hospital and make further recommendations thereafter. <ELECTRONICALLY SIGNED> By: Nakul Craig DO 08/02/18 [id number] Craig DO /nt
[2018-08-02 20:00] VITALS: BP 126/81
[2018-08-03 03:56] LABS: ABSOLUTE BASOPHILS 0.1 thou/uL (0.0-0.2); ABSOLUTE EOSINOPHILS 0.2 thou/uL (0.0-0.7); ABSOLUTE MONOCYTES 0.9 thou/uL (0.0-1.2); ABSOLUTE NEUTROPHILS 4.3 thou/uL (1.6-8.1); BASOPHILS 1.3 %; EOSINOPHILS 2.4 %; HEMATOCRIT 20.3 % (37.0-47.0); LYMPHOCYTES 16.1 %; MCH 34.3 pg (26.0-34.0); MCHC 34.6 g/dL (28.0-37.0); MCV 99.2 fL (80.0-100.0); MONOCYTES 14.6 %; NUCLEATED RBCS 0 /100WBC; PLATELET COUNT* 127 thou/uL (150-400); POLYS 65.6 %; RBC 2.05 mil/uL (4.20-5.00); RDW-CV 17.5 % (10.5-14.5); WBC 6.5 thou/uL (4.0-11.0)
[2018-08-03 04:18] LABS: ALBUMIN 1.5 g/dL (3.4-5.0); CALCIUM 7.6 mg/dL (8.5-10.1); CREATININE 0.6 mg/dL (0.6-1.3); POTASSIUM 3.8 mmol/L (3.5-5.1); TOTAL BILIRUBIN 0.7 mg/dL (<0.1-1.0); TOTAL PROTEIN 4.8 g/dL (6.4-8.2)
--- NOTE | 2018-08-03 06:35 | NUR ---
ASSUMED PT CARE @ 1930. PT IS ALERT TO SELF TIME AND PLACE. FLAT AFFECT. WILL ANSWER QUESTIONS WITH SHORT ANSWERS. DOES NOT CALL OUT WHEN SHE'S INCONTINENT. BM X2. NO PAIN REPORTED OR OBSERVED. CALL LIGHT IN REACH. HOURLY ROUNDING FOR SAFETY.
[2018-08-03 07:40] VITALS: BP 129/82
[2018-08-03 16:48] VITALS: BP 108/71
--- NOTE | 2018-08-03 16:52 | NUR ---
PATIENT HAD A SMALL VOMITTING EPISODE WHILE EATING BREAKFAST THIS AM, PATIENT DID TOLERATE ENSURE AT LUNCH. INCONTINENT B/B, PURWICK IN PLACE AND CHANGED PER PROTOCOL. TURNED Q2, PATIENT DID SIT UP IN CHAIR THIS SHIFT AFTER WORKING WITH PT. DR. AQUINO REQUESTING COLONOSCOPY TO BE DONE BY GI REGARDING DECREASED HGB. SPOKE WITH DR. LINO AND PATIENT HAD COLONOSCOPY APPROX A MONTH AGO AND RECORDS IN PLACE ON FRONT OF CHART, DR. LINO AWARE. DR. AQUINO NOTIFIED. 24 HOUR URINE COLLECTION FOR COPPER CONTINUES. TPN INFUSING AT 40MLS/HR, IF BAG RUNS DRY D10 TO BE INFUSED PER PROTOCOL. IV CONTINOUS PROTONIX DC'D AND BID PUSHED STARTED. MG INFUSED ORDERED.
[2018-08-03 20:26] VITALS: BP 127/84
[2018-08-04 04:45] LABS: ABSOLUTE BASOPHILS 0.1 thou/uL (0.0-0.2); ABSOLUTE EOSINOPHILS 0.2 thou/uL (0.0-0.7); ABSOLUTE LYMPHOCYTES 1.4 thou/uL (0.8-5.3); ABSOLUTE MONOCYTES 0.9 thou/uL (0.0-1.2); ABSOLUTE NEUTROPHILS 3.2 thou/uL (1.6-8.1); BASOPHILS 1.4 %; LYMPHOCYTES 24.2 %; MCH 33.4 pg (26.0-34.0); MCHC 33.6 g/dL (28.0-37.0); MCV 99.6 fL (80.0-100.0); MONOCYTES 15.5 %; MPV 8.6 fl. (7.2-11.1); NUCLEATED RBCS 0 /100WBC; PLATELET COUNT* 147 thou/uL (150-400); POLYS 55.9 %; RDW-CV 17.5 % (10.5-14.5); WBC 5.7 thou/uL (4.0-11.0)
[2018-08-04 04:55] LABS: HEMOGLOBIN 6.4 gm/dL (12.0-15.0)
[2018-08-04 05:33] LABS: CALCIUM 7.6 mg/dL (8.5-10.1); CREATININE 0.5 mg/dL (0.6-1.3); MAGNESIUM 1.7 mg/dL (1.8-2.4)
--- NOTE | 2018-08-04 07:15 | NUR ---
ASSUMED CARE @ 1919-08/03-SAT.APPEARS SLEEPING FLAT IN BED.BED ALARM ALREADY ON @ 1919.PUREWICK IN PLACE & CONNECTED TO SUCTION.ON 24 HOUR URINE COLLECTION. 2 PORTS PICC LINE HAS GOOD BLOOD RETURN @ 2219 & FLUSHED GOOD.TPN STARTED @ 2222 @ 40 ML/HOUR.AT 2209-PUREWICK CHANGED.CLOGGED BY INC STOOLS.DAILY WEIGHT STARTED TODAY 08/04-SUN.TOOK ALL ROBBY.PUDDING HS SNACK.AT 0454-LAB CALLED FOR CRITICAL RESULTS FOR HGB-6.4 & HCT-19.0.SENT MESSAGE TO YOU CALL MD @ 0500.DR AQUINO CALLED BACK @ 0526 & GAVE ORDER TO TRANSFUSE ONE UNIT PRBC. PATIENT INFORMED OF TRANSFUSION.SLEPT MOSTLY DURING NIGHT.AWAKE @ 2200 & 0600.
[2018-08-04 08:11] VITALS: BP 120/73; BP 122/86; BP 124/83; BP 128/90; BP 132/79
[2018-08-04 08:15] VITALS: BP 114/79
[2018-08-04 16:00] VITALS: BP 124/91
--- NOTE | 2018-08-04 16:47 | NUR ---
PATIENT TRANFUSED X 1 UNIT THIS AM PER ORDERS. VITALS CHARTED. PER DR. AQUINO WILL RECHECK HGB IN AM. PATIENT MOM HERE THIS MORNING FOR BREAKFAST, BLOOD HAD BEEN INFUSING APPROX 2 HOURS. AM MEDICATIONS PASSED AND VITALS WERE DONE AT THAT TIME AND THIS NURSE WENT TO SEE ANOTHER PATIENT. PATIENTS MOTHER CALLING OUT APPROX 5 MINUTES LATER SAYING PATIENTS FACE WAS RED AND SHE WAS HAVING TROUBLE BREATHING. THIS NURSE WENT TO ASSESS PATIENT AND PATIENT FACE AND UPPER CHEST NOTED TO BE RED, NO LABORED BREATHING NOTED. 02 SAT 94-95% RA. PATIENT DID STATE AT THAT TIME SHE WAS ITCHING IN THE CREASE OF HER LEFT ARM, AREA NOTED TO HAVE PREVIOUS OLD IV SITE. DR. AQUINO NOTIFIED AND ORDERS FOR IV BENADRYL X 1 AND PO TYLENOL X 1. PATIENT GIVEN MEDICATIONS AND WAS ASSESSED AFTER WITH NO DISTRESS NOTED. BLOOD TRANSFUSION COMPLETED, NO DIFFICULT NOTED. PATIENT TURNED Q2, PURWICK REMOVED. PATIENT REMAINS INCONTINENT OF URINE AND SMALL STOOL THIS AFTERNOON. AWAITING GI TO ROUND. PICC LINE DRESSING TO BE CHANGED TODAY PER PROTOCOL, PATIENT VERBALIZES UNDERSTANDING. TPN CONTINUES INFUSING AT 40MLS/HR.
[2018-08-04 22:15] VITALS: BP 116/68
[2018-08-05 03:44] LABS: HEMATOCRIT 23.1 % (37.0-47.0); HEMOGLOBIN 7.9 gm/dL (12.0-15.0); MCH 33.5 pg (26.0-34.0); MCHC 34.3 g/dL (28.0-37.0); MCV 97.9 fL (80.0-100.0); MPV 8.1 fl. (7.2-11.1); RBC 2.36 mil/uL (4.20-5.00); RDW-CV 17.3 % (10.5-14.5)
[2018-08-05 04:52] LABS: ALBUMIN 1.7 g/dL (3.4-5.0); CALCIUM 7.5 mg/dL (8.5-10.1); CREATININE 0.6 mg/dL (0.6-1.3); MAGNESIUM 1.4 mg/dL (1.8-2.4); POTASSIUM 3.9 mmol/L (3.5-5.1); TOTAL BILIRUBIN 0.6 mg/dL (<0.1-1.0); TOTAL PROTEIN 5.2 g/dL (6.4-8.2)
--- NOTE | 2018-08-05 05:42 | NUR ---
PT A&O. VSS, HR 105 AT TIME OF ASSESSMENT. PO ABX GIVEN ORDERD. TPN DC'D ORDERED. PT INCONTINENT OF URINE AND STOOL. PT HAD 2 BM EPISODES. STOOL SAMPLE COLLECTED ORDERED. NEGATIVE OCCULT BLOOD. PT DENIES P/N/V THIS SHIFT. PT WAS UP MOST OF THE NIGHT, STARTING SLEEPING THIS AM. WILL CONTINUE TO MONITOR.
--- NOTE | 2018-08-05 14:25 | CON ---
[address] [address] CONSULTATION Name: TESSIE VÁSQUEZ Room: [address] IN M.R.#: [id number] Admission: 07/24/18 Attend Phys: Amber Krishnan Discharge: Date of : 82 Report #: [id number] THIS REPORT FOR: //name// CC: Laurent Weston DICTATED BY: Bhavana Melara [facility] DATE OF SERVICE: 07/25/2018 PRIMARY CARE PHYSICIAN: Laurent Weeks DO Please note at the time of this dictation, the patient was seen and physically examined by myself. REASON FOR CONSULTATION: Transaminitis and hepatic encephalopathy. HISTORY OF PRESENT ILLNESS: This is 38-year-old female who presented to the ER with worsening of weakness and the patient had slid out of the chair that morning to the ground. She was just oriented and very confused. The patient states that she had been feeling very well for the past week. She recently had been at [facility] and discharged recently for the same reasons and was told that she had a urinary tract infection. Prior to that, the patient states that she had an EGD done as an outpatient by Dr. Moiz Vasquez. Mother states she thought he said that she had Ruiz's and had some H. pylori, but just for her to stay on her omeprazole daily. The patient states that she has been having issues with nausea, vomiting and abdominal pain since January of last year and has lost about 60 pounds with all of this. She had her gallbladder taken out in May of this year, which was related to stones. At the time of this consultation, she was still complaining of some upper abdominal discomfort; however, her mental status has improved. In talking with the nursing staff and that she can answer questions more appropriately along with her parents being at her bedside. The patient also had gastric bypass surgery done in 2012 and then because she was not losing weight, she went to [facility] and had a revision done, unsure of exactly what kind of surgery was done at that time. At the time of admission, the patient's ammonia level was 84. Her liver enzymes were elevated significantly and she appears jaundiced. ALLERGIES: NSAIDS. MEDICATIONS: From home, she was taking Tylenol, Xanax, vitamin B12, iron, omeprazole 20 mg, methylphenidate ER, Synthroid, Wellbutrin and doxepin. PAST MEDICAL HISTORY: Morbid obesity, hypothyroidism, [place] [address] CONSULTATION Name: TESSIE VÁSQUEZ Room: [address]#: [id number] Admission: 07/24/18 Attend Phys: Amber Krishnan Discharge: Date of : 82 Report #: [id number] PAST SURGICAL HISTORY: Gallbladder and previous Arnold-en-Y. FAMILY HISTORY: Negative for any GI or female cancers. SOCIAL HISTORY: Alcohol socially. Denies any tobacco or any illegal drug use at this time. REVIEW OF SYSTEMS: A 12-point review of systems is essentially negative except what is mentioned in the HPI. PHYSICAL EXAMINATION: VITAL SIGNS: Temperature 36.9, pulse 104, respirations 24, blood pressure 136/74. HEART: Regular rate and rhythm. LUNGS: Diminished and coarse, especially on the left. ABDOMEN: Soft, positive bowel sounds in all 4 quadrants with upper abdominal tenderness noted to palpation. LABORATORY DATA: Hemoglobin on admission was 9, white count is 10.2, platelets 168. CRP was 36. ESR was 10. Total bilirubin on admission was 3.8. She is down to 3.1, alkaline phosphatase 305, ALT 154, AST 142. Iron is 57. Again, ammonia was 84. BNP was 3146. CK was 1516. PT 14.7, INR 1.4. CT of the abdomen and pelvis showed moderate sigmoid bowel thickening of the colon from the cecum to the upper descending colon and some questionable small bowel wall thickening as well. Also, some diffuse low density noted in the liver. Urine showed nitrites. IMPRESSION: 1. Abdominal pain. 2. Transaminitis. 3. Hepatic encephalopathy. 4. Abnormal CT of the colon. 5. Anemia. 6. Pneumonia, left lower lobe. 7. Urinary tract infection. 8. Chronic kidney disease. PLAN: 1. MRCP. 2. Obtain records from Dr. Vasquez on recent EGD records from [facility] from recent hospitalization, as well as [facility] where she was hospitalized as well. 3. Labs pending. Acute hepatitis panel. 4. Further recommendations to be made once the [place] [address] CONSULTATION Name: TESSIE VÁSQUEZ Room: [address] IN M.R.#: [id number] Admission: 07/24/18 Attend Phys: Amber Krishnan Discharge: Date of : 82 Report #: [id number] Thank you for allowing us to participate in this patient's care. Please do not hesitate to call with any questions in regard to this consult. <ELECTRONICALLY SIGNED> By: Wellington Loco MD 08/05/18 1425 [id number] [id number] Loco MD /nt
[2018-08-05 16:00] VITALS: BP 130/74
--- NOTE | 2018-08-05 16:09 | NUR ---
ASSESSMENT COMPLETE. PT ALERT AND ORIENTED X4. UP IN CHAIR MOST OF THE DAY. MAG REPLACED TODAY. PT DENIES PAIN AND N/V. TOLERATING MEALS. VSS. PT IS FALL RISK, CHAIR ALARM ON. PT HAS PICC IN RIGHT UPPER ARM, FLUSHES AND DRAWS WITHOUT DIFFICULTY. SEE ASSESSMENT AND VITALS FOR OTHER DETAILS. CALL LIGHT WITHIN REACH, WILL CONTINUE PLAN OF CARE
--- NOTE | 2018-08-05 16:45 | NUR ---
DAYTON spoke with pt mother about additional FMLA forms for an extension of leave and SW informed Dr Arreola who said he would address tomorrow. DAYTON spoke with vocational rehab consultant who states inpt rehab is considering pt pending final acceptance and then would need insurance auth. SW to continue to follow to assist with safe dc planning.
[2018-08-06 00:05] VITALS: BP 127/85
--- NOTE | 2018-08-06 07:37 | NUR ---
PT UP TO CHAIR BEGINNING OF SHIFT. VSS & ASSESSMENT COMPLETE. PT INCONTINENT AND CHANGED THROUGH OUT SHIFT. PT DOES NOT CALL OUT DURING INCONTINENCE EPISODES. MEDS GIVEN PER EMAR. WILL CONTINUE TO MONITOR.
[2018-08-06 07:39] VITALS: BP 120/78
--- NOTE | 2018-08-06 16:40 | NUR ---
SW spoke with Dr Arreola, pt mother and rehabilitation services counselor to discuss safe dc planning. Pending auth for inpt rehab, Dr Arreola and SW discussed with pt mother to be prepared for pt to be able to dc home with HH tomorrow, although Dr Arreola continues to recommend inpt rehab for a while. account liaison informed SW that the insurance has not yet responded all day. SW to continue to follow to assist with safe dc planning.
--- NOTE | 2018-08-06 17:18 | NUR ---
ASSESSMENT COMPLETE. PT ALERT AND ORIENTED X4 TODAY. PT HAD HEADACHE THIS AM, TYLENOL GIVEN. PT HAD ONE EPISODE OF VOMITTING THIS MORNING, ZOFRAN GIVEN. PT IS ON ROOM AIR, VSS. PT INCONT OF URINE. PT UP IN CHAIR MOST OF THE DAY. [place] DC'D TODAY. WAITING FOR INSURANCE AUTH FOR REHAB. MAG REPLACED TODAY. PICC IN RIGHT UPPER ARM, FLUSHES AND DRAWS WITH NO DIFFICULTY. PT HAS NO OTHER CONCERNS AT THIS TIME. SEE ASSESSMENT AND VITALS FOR OTHER DETAILS. CALL LIGHT WITHIN REACH, WILL CONTINUE PLAN OF CARE
[2018-08-06 20:30] VITALS: BP 136/89
--- NOTE | 2018-08-07 05:52 | NUR ---
PT A&O THIS SHIFT. VSS AND ASSESSMENT COMPLETE. PT INCONTINENT, CLEANED APPROPRIATE. MEDS GIVEN PER EMAR, PT TOLERATED WELL. BED ALARM ON. CALL LIGHT WITHIN REACH, HOWEVER PT DOES NOT CALL OUT FOR ANYTHING. PT SLEPT MOST OF SHIFT. WILL CONTINUE TO MONITOR.
--- NOTE | 2018-08-07 05:55 | NUR ---
PT A&O X4. VS AND ASSESSMENT COMPLETE, AFIB ON THE MONITOR. NO IV ACCESS AT THIS TIME. PAIN MEDS GIVEN THIS SHIFT, RELIEFS NOTED. PT TO BSC THIS SHIFT. PT SLEPT MOST OF SHIFT. FALL PRECAUTIONS IN PLACE. HOPING TO DC TO REHAB. WILL CONTINUE TO MONITOR.
[2018-08-07 08:00] VITALS: BP 118/82
[2018-08-07] MEDS ORDERED: CARAFATE 1 GM TA1 G1 PO (11:28)
[2018-08-07] MEDS ORDERED: FOLIC ACID1 MG PO (11:28)
[2018-08-07] MEDS ORDERED: LASIX 40 MG TAB40 M2 PO (11:29)
[2018-08-07] MEDS ORDERED: PROTONIX40 M1 PO (11:29)
[2018-08-07] MEDS ORDERED: VITAMIN D2000 UNIT PO (11:30)
[2018-08-07] MEDS ORDERED: SPIRONOLACTONE25 M1 PO (11:30)
[2018-08-07] MEDS ORDERED: XIFAXAN550 M1 PO (11:31)
[2018-08-07] MEDS ORDERED: ZINC50 MG PO (11:31)
[2018-08-07 12:39] VITALS: BP 118/82
[2018-08-07 14:02] VITALS: BP 118/82
--- NOTE | 2018-08-07 14:20 | NUR ---
NEGATIVE DEVELOPER WAS INFORMED BY DR WEI THAT THE PATIENT IS NOW REQUESTING TO RETURN HOME TODAY WITH HH, INSTEAD OF ACUTE INPATIENT REHAB. D/C REGIONAL SAFETY MANAGER SPOKE TO THE PATIENT TO CONFIRM THIS. D/C REGIONAL SAFETY MANAGER SPOKE [facility] TO INFORM OF THE HH REFERRAL, THEY HAVE A MENTAL HEALTH RN ON STAFF. [facility] NOT ABLE TO ACCEPT THE PATIENT, HER INSURANCE IS [id number]. D/C REGIONAL SAFETY MANAGER SPOKE TO ANOOP WITH [facility] TO INFORM OF THE HH REFERRAL AND SHE CONFIRMS ABILITY TO ACCEPT THE PATIENT. D/C REGIONAL SAFETY MANAGER FAXED [facility] PATIENT'S FACESHEET, H&P, AND D/C ORDERS. PATIENT ALSO NEEDS A FRONT WHEELED WALKER AT D/C. D/C REGIONAL SAFETY MANAGER SPOKE TO [place] WITH [facility] TO INFORM OF THE DME REFERRAL, AND FAXED THE PATIENT'S FACESHEET, H&P, AND DME ORDER. JACKSON CONFIRMS THAT A FWW CAN BE DISPENSED FROM THE CLOSET. D/C REGIONAL SAFETY MANAGER INFORMED P.T. OF THE NEED TO DISPENSE THE WALKER, AND PLACED DME ORDER ON THE CHART. D/C REGIONAL SAFETY MANAGER SPOKE TO THE PATIENT'S MOTHER AND SHE INFORMS THAT SHE WILL RETURN TO THE HOSPITAL AT 1600 TO PROVIDE TRANSPORT HOME. CM WILL REMAIN AVAILABLE TO ASSIST AND FOLLOW NEEDED.
[2018-08-07 16:53] VITALS: BP 118/82
--- NOTE | 2018-08-07 16:54 | NUR ---
PT LEFT WITH PARENTS IN PERSONAL VEHICLE. DC INSTRUCTIONS AND PRESCRIPTIONS GIVEN. PT VERBALIZES UNDERSTANDING. ALL BELONGINGS SENT WITH PATIENT. PICC TAKEN OUT WITHOUT COMPLICATIONS.
--- NOTE | 2018-08-07 17:06 | PATH ---
[address] [address] PATHOLOGY RPT PROCEDURE Name: LIZZY VÁSQUEZ Room: [address] IN M.R.#: [id number] Admission: 07/24/18 Date of : 82 Discharge: 08/07/18 Report #: [id number] Path Case #: [id number] [facility] Accession Number: [id number] . 01 Material submitted: . liver - LIVER BIOPSY . 01 Clinical history: . Cirrhosis . 02 Diagnosis: Liver biopsy: - Severe steatohepatitis without fibrosis, negative for malignancy. (See comment). . (ALLY:mary; 07/29/2018) QLM/07/29/2018 . 02 Comment: Each of the liver core biopsies show similar findings with severe (greater than 90%) predominantly macrovesicular steatosis in association with prominent spotty active inflammation. Bile ducts are present with minimal evidence of bile stasis and there are no granulomas or significant numbers of eosinophils or plasma cells present in the inflammation. The portal tracts do not contain significant chronic inflammation. Kim's hyaline is not apparent. Properly-controlled special stains performed on A1, A2 and A3 show the following results: . Iron: Mild increase generally within Kupffer cells. Reticulin and Trichrome: Hepatic plates generally intact with mild ballooning distortion and no evidence of fibrosis. PAS and PAS with diastase (A1 and A2 only): No globules. . The [employer] scoring system is as follows: . Steatosis: Grade 3 (greater than 66%) Lobular inflammation: 2 (2-4 foci / 20X field) Hepatocellular ballooning fibrosis: 0 (none) NAFLD activity score: 5 Fibrosis score: 0 (none) . This case will be submitted to the [facility] department of hepatopathology in consultation and an addendum report will be issued. . Reviewed with Dr. Angela Olivier who agrees with the diagnosis. . (ALLY:mary; 07/29/2018) . 02 [place] [address] PATHOLOGY RPT PROCEDURE Name: LIZZY VÁSQUEZ Room: [address] IN M.R.#: [id number] Admission: 07/24/18 Date of : 82 Discharge: 08/07/18 Report #: [id number] Path Case #: [id number] Addendum: . Special studies report received from [place] [address] [facility] [place] [address], on case [id number], labeled with their number [id number], dated 08/07/2018. . PATH Pathology Consultation . Pathology Consult . Interpretation . FINAL DIAGNOSIS Liver, needle biopsy ([id number]; 07/26/2018): Marked (approximately 90%) macrovesicular steatosis and mild active steatohepatitic with pericellular fibrosis (stage 1 of 4). Mild hepatocanalicular cholestasis. (See comment.) . COMMENT The liver biopsy is adequate for assessment. The biopsy shows marked (approximately 90%) macrovesicular steatosis with rare ballooned hepatocytes and rare acidophilic bodies. Trichrome stain shows mild portal fibrosis and patchy pericellular/perisinusoidal fibrosis. Mild bile ductular proliferation (CK7 stain) with associated acute neutrophilic infiltrate is seen. Mild hepatocanalicular and cholangiolar cholestasis is also seen. . PAS-D stain is negative for intracytoplasmic hyaline globules. Iron stain shows minimal hemosiderin deposition (1+ of 4+). . This is a 38-year-old female with history of elevated liver function tests. Her liver function tests are as follows: AST 142; ALT 154; total bilirubin 3.1; direct bilirubin 2.2; alkaline phosphatase 305. Her serologies for hepatitis A, B, and C are negative. . The biopsy shows mild active steatohepatitis with pericellular fibrosis (stage 1 of 4). Differential diagnosis includes alcoholic liver disease (ALD) and nonalcoholic fatty liver disease (NAFLD). Some causes of NAFLD include John's disease and drug-induced steatohepatitis (e.g. Amiodarone, Methotrexate, Corticosteroids, and Tamoxifen). Correlation with serum ceruloplasmin levels and 24-hour urinary copper is recommended. Quantitative copper analysis can be performed on paraffin-embedded block to John disease, if clinically indicated. In addition, mild cholestasis and mild bile ductular proliferation is seen, which most likely represent an additional component of either adverse drug reaction or downstream biliary outflow obstruction. . Thank you for sharing this case with me. Your submitted material is enclosed. If you have any questions, please do not hesitate to reach me at [phone]. I would appreciate any further follow-up information that you may receive on this case. [place] [address] PATHOLOGY RPT PROCEDURE Name: LIZZY VÁSQUEZ Room: [address] IN M.R.#: [id number] Admission: 07/24/18 Date of : 82 Discharge: 08/07/18 Report #: [id number] Path Case #: [id number] . A review of records that included clinical notes and laboratory results was performed to assist in the diagnostic assessment of the case. . Material Received A. [id number]: Liver 18 stained slides, 1 block . Report electronically signed by Luis Martínez.B.S. [id number] . I verify that I have examined all relevant slides/materials for the specimen(s) and rendered or confirmed the diagnosis. . . Disclaimer This test was developed and its performance characteristics determined by [facility] in a manner consistent with CLIA requirements. This test has not been cleared or approved by the U.S. Food and Drug Administration. . A complete copy of the report is on file. . Professional services performed by [address] [address]. [facility] performed by [facility] [address] [place] [address], [address], [place] [address]. . (AMJ 08/07/2018) . AZJ/08/07/2018 Addendum Electronically Signed by Gabino Slater MD, Pathologist . 02 Electronically signed: . Gabino Slater MD, Pathologist NPI- [id number] . 01 Gross description: . Received in formalin labeled "Lizzy Vásquez, liver BX," are 3 distinct needle cores of sousa soft tissue ranging from 1.1 to 1.4 cm in length and measuring less than 0.1 cm each in diameter. The specimen is submitted entirely in cassettes A1 through A3. (TSD; 07/26/2018) TOB/TOB . 02 Pathologist provided ICD-10: K76.0 . 02 [place] [address] PATHOLOGY RPT PROCEDURE Name: LIZZY VÁSQUEZ Room: [address] IN [facility].#: [id number] Admission: 07/24/18 Date of : 82 Discharge: 08/07/18 Report #: [id number] Path Case #: [id number], [id number], [id number] Specimen Comment: A courtesy copy of this report has been sent to Specimen Comment: [phone], , . Specimen Comment: Report sent to ,DR THOMPSON / DR WOODARD Performed at: [address], [place], [place] [id number] MD Emmanuel Alas MD Phone: [phone] Performed at: [address] [facility] [address], [place], [place] [address] MD Gabino Slater MD Phone: [phone]
== END 2018-08-07 16:50 | disposition home health service (06) | DRG 871 ==
LOC: M.ERS 09:33 → M.3W 10:44 → M.TBA-ER 10:44 → M.3W 12:24
PROVIDERS: Emergency Medicine Emergency Medical Services; Family Medicine; Internal Medicine; Internal Medicine Gastroenterology; ADMIT Internal Medicine
PROC: 05HY33Z Insertion of Infusion Device into Upper Vein, Percutaneous Approach (ICD-10-PCS; principal; 2018-07-24)
PROC: 0FB03ZX Excision of Liver, Percutaneous Approach, Diagnostic (ICD-10-PCS; 2018-07-26)
PROC: 05HY33Z Insertion of Infusion Device into Upper Vein, Percutaneous Approach (ICD-10-PCS; 2018-07-28)
PROC: 30233N1 Transfusion of Nonautologous Red Blood Cells into Peripheral Vein, Percutaneous Approach (ICD-10-PCS; 2018-07-29)
PROC: 3E0G8GC Introduction of Other Therapeutic Substance into Upper GI, Via Natural or Artificial Opening Endoscopic (ICD-10-PCS; 2018-07-31)
PROC: 0D5A8ZZ Destruction of Jejunum, Via Natural or Artificial Opening Endoscopic (ICD-10-PCS; 2018-07-31)
DX: A41.9 Sepsis, unspecified organism (principal); E43 Unspecified severe protein-calorie malnutrition; J69.0 Pneumonitis due to inhalation of food and vomit; G93.41 Metabolic encephalopathy; K28.4 Chronic or unspecified gastrojejunal ulcer with hemorrhage; B17.9 Acute viral hepatitis, unspecified; N39.0 Urinary tract infection, site not specified; N17.9 Acute kidney failure, unspecified; J98.11 Atelectasis; R74.0 Nonspecific elevation of levels of transaminase and lactic acid dehydrogenase [LDH]; E66.01 Morbid (severe) obesity due to excess calories; E03.9 Hypothyroidism, unspecified; F41.9 Anxiety disorder, unspecified; K72.90 Hepatic failure, unspecified without coma; N18.9 Chronic kidney disease, unspecified; F32.9 Major depressive disorder, single episode, unspecified; K75.81 Nonalcoholic steatohepatitis (NASH); G89.29 Other chronic pain; G47.00 Insomnia, unspecified; D50.9 Iron deficiency anemia, unspecified; E80.6 Other disorders of bilirubin metabolism; E87.6 Hypokalemia; K52.9 Noninfective gastroenteritis and colitis, unspecified; K21.0 Gastro-esophageal reflux disease with esophagitis; R62.7 Adult failure to thrive; E83.42 Hypomagnesemia; M60.9 Myositis, unspecified; K76.89 Other specified diseases of liver; E56.9 Vitamin deficiency, unspecified; D69.6 Thrombocytopenia, unspecified; Z68.33 Body mass index [BMI] 33.0-33.9, adult; Z90.49 Acquired absence of other specified parts of digestive tract; Z87.891 Personal history of nicotine dependence; Z82.49 Family history of ischemic heart disease and other diseases of the circulatory system

== ENCOUNTER 2018-08-21 11:02 | Emergency (ER) | payer OTHER ==
[~2018-08-21] VITALS: Ht 170.2 cm; Wt 74.8 kg
[~2018-08-21 11:02] MED LIST: CARAFATE 1 GM TA1 G1 PO; CLOTRIMAZOLE10 MG DISSOLVE; DOXEPIN 75 MG C75 M1 PO; DOXEPIN 75 MG C75 MG PO; FOLIC ACID1 MG PO; IRON325 PO; LASIX 40 MG TAB40 M2 PO; METHYLPHENIDATE10 MG PO; OMEPRAZOLE 20 M20 M1 PO; PROTONIX40 M1 PO; SPIRONOLACTONE25 M1 PO; SYNTHROID75 MCG PO; TYLENOL325 MG PO; VITAMIN B122500 MCG PO; VITAMIN D2000 UNIT PO; WELLBUTRIN XL150 MG PO; XANAX1 MG PO; XIFAXAN550 M1 PO; ZINC50 MG PO
[2018-08-21] MEDS ORDERED: XANAX1 MG PO (11:13)
[2018-08-21] MEDS ORDERED: DOXEPIN 10 MG C10 M1 PO (11:14)
[2018-08-21 11:32] LABS: HEMATOCRIT 42.9 % (37.0-47.0); HEMOGLOBIN 14.5 gm/dL (12.0-15.0); MCH 31.7 pg (26.0-34.0); MCHC 33.8 g/dL (28.0-37.0); MCV 94.1 fL (80.0-100.0); MPV 8.4 fl. (7.2-11.1); NUCLEATED RBCS 0 /100WBC; PLATELET COUNT* 415 thou/uL (150-400); RBC 4.56 mil/uL (4.20-5.00); RDW-CV 14.8 % (10.5-14.5); WBC 5.5 thou/uL (4.0-11.0)
[2018-08-21 12:16] LABS: ALBUMIN 2.9 g/dL (3.4-5.0); ALKALINE PHOSPHATASE 140 U/L (46-116); ANION GAP 12 mmol/L (7-16); BUN 6 mg/dL (7-18); CALCIUM 8.4 mg/dL (8.5-10.1); CHLORIDE 100 mmol/L (98-107); CO2 28 mmol/L (21-32); CREATININE 0.9 mg/dL (0.6-1.3); GLUCOSE 106 mg/dL (70-99); LIPASE 49 U/L (73-393); SGOT 83 U/L (15-37); SGPT 73 U/L (30-65); SODIUM 140 mmol/L (136-145); TOTAL BILIRUBIN 1.7 mg/dL (<0.1-1.0); TOTAL PROTEIN 7.2 g/dL (6.4-8.2); TROPONIN-I LEVEL <0.06 ng/mL (<0.06)
[2018-08-21 12:19] LABS: POTASSIUM 2.7 mmol/L (3.5-5.1)
[2018-08-21 12:35] LABS: ABSOLUTE EOSINOPHILS 0.1 thou/uL (0.0-0.7); ABSOLUTE LYMPHOCYTES 1.7 thou/uL (0.8-5.3); ABSOLUTE MONOCYTES 0.3 thou/uL (0.0-1.2); ABSOLUTE NEUTROPHILS 3.4 thou/uL (1.6-8.1)
[2018-08-21 12:36] LABS: PLATELET ESTIMATE INCREASED
[2018-08-21 12:39] LABS: ANISOCYTOSIS 2+; SCHISTOCYTES 1+
[2018-08-21 12:40] LABS: POIKILOCYTOSIS 1+
[2018-08-21 13:00] VITALS: BP 108/64
[2018-08-21 13:22] LABS: URINE BLOOD 3+ (Negative); URINE CLARITY TURBID; URINE COLOR DARK YELLOW; URINE GLUCOSE-RANDOM TRACE (Negative); URINE KETONES TRACE (Negative); URINE LEUKOCYTES-REFLEX NEGATIVE (Negative); URINE NITRITE-REFLEX NEGATIVE (Negative); URINE PROTEIN 2+ (Negative); URINE SPECIFIC GRAVITY >= 1.030 (1.005-1.030)
[2018-08-21 13:23] LABS: ICTOTEST (BILI CONFIRMATORY) Negative (Negative); URINE BILIRUBIN 2+ (Negative)
[2018-08-21] MEDS ORDERED: POTASSIUM20 PO (13:24)
[2018-08-21] MEDS ORDERED: REGLAN 10 MG TA10 MG PO (13:24)
[2018-08-21] MEDS ORDERED: NORCO 5-325 TA1 EACH PO (13:24)
[2018-08-21 13:31] LABS: AMORPHOUS URATES Many /LPF (None Seen); BACTERIA-REFLEX None Seen /HPF (None Seen); CASTS None Seen /LPF (None Seen); CRYSTALS None Seen /LPF (None Seen); SQUAMOUS NONE SEEN /LPF (0-3); URINE RBC 0-2 Rare /HPF (0-2); URINE WBC-REFLEX 0-5 Rare /HPF (0-5)
--- NOTE | 2018-08-21 16:10 | EKG ---
[place] [address] ELECTROCARDIOGRAM REPORT Name: TESSIE VÁSQUEZ Room: [facility]#: [id number] Admission: 08/21/18 Attend Phys: Discharge: Date of : 82 Report #: [id number] THIS REPORT FOR: //name// [facility] ED Test Date: 2018-08-21 Test Time: 11:48:52 Pat Name: TESSIE VÁSQUEZ Department: Room: Gender: F Greeting Card Writer: : 1980 Requested By: Lázaro Velasquez Order Number: [id number] MD: Joselito Crisostomo Measurements Intervals [place] Rate: 70 P: 40 IN: 124 QRS: -28 QRSD: 94 T: 26 QT: 397 QTc: 429 Interpretive Statements Sinus rhythm Borderline left axis deviation Compared to ECG 07/24/2018 10:20:41 Sinus tachycardia no longer present Ventricular premature complex(es) no longer present Electronically Signed On 08-21-2018 16:10:06 CDT by Joselito Crisostomo [email or web address] <ELECTRONICALLY SIGNED> By: Joselito Crisostomo MD, [facility] 08/21/18 1610 1148 1148 Joselito Crisostomo MD, FACC /EPI
== END 2018-08-21 14:16 | disposition home or self-care (01) ==
LOC: M.ERS 11:02
PROVIDERS: Family Medicine
DX: E87.6 Hypokalemia (principal); R11.2 Nausea with vomiting, unspecified; R10.84 Generalized abdominal pain; Z88.6 Allergy status to analgesic agent

== ENCOUNTER 2018-09-16 22:42 | Emergency (ER) | payer OTHER ==
[~2018-09-16] VITALS: Ht 170.2 cm; Wt 79.4 kg
[~2018-09-16 22:42] MED LIST changes: +DOXEPIN 10 MG C10 M1 PO; +NORCO 5-325 TA1 EACH PO; +POTASSIUM20 PO; +REGLAN 10 MG TA10 MG PO
[2018-09-17 00:19] VITALS: BP 109/70
== END 2018-09-17 00:21 | disposition home or self-care (01) ==
LOC: M.ERS 22:42
DX: S00.03XA Contusion of scalp, initial encounter (principal); S80.212A Abrasion, left knee, initial encounter; Z88.6 Allergy status to analgesic agent; W18.39XA Other fall on same level, initial encounter; Y93.89 Activity, other specified; Y92.89 Other specified places as the place of occurrence of the external cause; Y99.8 Other external cause status

== ENCOUNTER → 2018-09-26 | Outpatient (CLI) | payer OTHER | LOC: M.RAD 09:45 | DX: K91.2 Postsurgical malabsorption, not elsewhere classified (principal); E56.9 Vitamin deficiency, unspecified; Z98.84 Bariatric surgery status ==

== ENCOUNTER 2018-10-01 06:20 | Inpatient (IN) | payer OTHER ==
[~2018-10-01] VITALS: Ht 170.2 cm; Wt 88.9 kg
[2018-10-01] VITALS (11 sets, daily range): BP systolic 94–115; BP diastolic 63–75
--- NOTE | ~2018-10-01 | OP ---
[address] [address] OPERATIVE REPORT Name: TESSIE VÁSQUEZ Room: [address] IN .R.#: [id number] Admission: 10/01/18 Attend Phys: Christen Sloan Discharge: Date of : 82 Report #: [id number] THIS REPORT FOR: //name// CC: Laurent Locke PRIMARY CARE PHYSICIAN: Laurent Weeks DO PREOPERATIVE DIAGNOSES: Perforated bowel, history of gastric bypass, recent upper gastrointestinal endoscopy and dilation. POSTOPERATIVE DIAGNOSIS: Perforation of the gastrojejunostomy, history of gastric bypass, recently EGD and dilatation. OPERATING SURGEON: Gareth Burns MD MYCOLOGY TEACHER: Jennie. OPERATIVE PROCEDURES DONE: 1. Laparoscopic lysis of adhesions. 2. Laparoscopic closure of gastrojejunal perforation. INDICATIONS FOR THE PROCEDURE: The patient is a 38-year-old female, who had a Arnold-en-Y gastric bypass done by Dr. Bartholomew at [facility] a few years ago. She subsequently had a revision of the gastric bypass done in [place]. Recently, a few days ago, the patient underwent upper GI endoscopy and dilation at [facility] by Dr. Bonds. The patient started to have an onset of abdominal pain from the next day. The patient presents with nearly 2 weeks' history of abdominal pain that has been gradually worsening. The patient is advised diagnostic laparoscopy and possible exploratory laparotomy. The patient showed understanding and agreed to proceed. DESCRIPTION OF PROCEDURE: After explaining to the patient in detail and informed consent was obtained, the patient was identified in the preoperative holding area. The patient was transferred to the operating room and was placed in supine position. Subsequent serial compression devices were placed for DVT prophylaxis. Preoperative antibiotics were given. After induction of anesthesia, the abdomen was prepped and draped in a sterile fashion. Through a left upper quadrant 1-cm incision and using Optiview technique, the peritoneal cavity was entered and pneumoperitoneum was created. Thereafter, under direct vision, another 5-mm trocar was placed in the left mid abdomen and another 12-mm trocar was placed in the right mid abdomen and another 5-mm trocar was placed in the right subcostal region and through a 1 cm incision in the epigastrium, a Fern retractor was introduced and the left lobe of the liver was retracted. Upon initial inspection, the patient was noted to [place] [address] OPERATIVE REPORT Name: TESSIE VÁSQUEZ Room: [address]#: [id number] Admission: 10/01/18 Attend Phys: Christen Sloan Discharge: Date of : 82 Report #: [id number] free fluid within the abdominal cavity. This was also thoroughly suctioned out. I then inspected the Arnold limb, the jejunojejunostomy, and the common channel and the biliary limb, which all appeared normal. The Arnold limb was then traced proximally. I noticed a lot of adhesions in this part of the abdomen from her previous abdominal surgery, which was gently taken down using sharp and blunt dissection. I continued adhesiolysis nearly 40 minutes. I was finally able to identify the gastrojejunal anastomosis and there was a large perforation that was noted anteriorly, which was measured about 1.5 cm in size. This ulcer was then closed in layers using 2-0 silk interrupted sutures to reinforce the suture line. The patient already had an OG tube in place and an air leak test was performed after this and there was no leak that was noted. Thorough saline irrigation of the abdomen was given. Absolute hemostasis was ensured. A 19-Kyrgyz ELIAS drain was placed in this area and the abdomen was then desufflated and the incisions were closed with 4-0 Monocryl. Dermabond was applied. The patient was stable at the end of the procedure. The patient was awoken from anesthesia and was transferred to the recovery room in stable condition. ESTIMATED BLOOD LOSS: 15 mL. CONDITION OF THE PATIENT: Stable. FLUIDS GIVEN: Per Anesthesia notes. SPECIMEN SENT: None. COMPLICATIONS: None. ANESTHESIA: General anesthesia. By: 35 55Gareth Burns MD /ary
[2018-10-01 06:47] LABS: ABSOLUTE BASOPHILS 0.1 thou/uL (0.0-0.2); ABSOLUTE LYMPHOCYTES 1.3 thou/uL (0.8-5.3); ABSOLUTE MONOCYTES 0.4 thou/uL (0.0-1.2); BASOPHILS 0.7 %; EOSINOPHILS 0.2 %; HEMATOCRIT 39.6 % (37.0-47.0); HEMOGLOBIN 13.2 gm/dL (12.0-15.0); LYMPHOCYTES 16.4 %; MCH 30.2 pg (26.0-34.0); MCHC 33.2 g/dL (28.0-37.0); MCV 90.8 fL (80.0-100.0); MONOCYTES 4.7 %; MPV 8.8 fl. (7.2-11.1); NUCLEATED RBCS 0 /100WBC; PLATELET COUNT* 221 thou/uL (150-400); RBC 4.36 mil/uL (4.20-5.00); RDW-CV 18.2 % (10.5-14.5); WBC 7.7 thou/uL (4.0-11.0)
[2018-10-01 07:03] LABS: CREATININE 0.9 mg/dL (0.6-1.3); POTASSIUM 3.3 mmol/L (3.5-5.1)
[2018-10-01 07:07] LABS: TOTAL BILIRUBIN 1.5 mg/dL (<0.1-1.0); TOTAL PROTEIN 5.3 g/dL (6.4-8.2)
[2018-10-01 10:24] LABS: URINE BLOOD NEGATIVE (Negative); URINE CLARITY CLEAR; URINE COLOR YELLOW; URINE GLUCOSE-RANDOM NEGATIVE (Negative); URINE KETONES NEGATIVE (Negative); URINE LEUKOCYTES-REFLEX NEGATIVE (Negative); URINE NITRITE-REFLEX NEGATIVE (Negative); URINE PROTEIN TRACE (Negative)
[2018-10-01 10:28] LABS: ICTOTEST (BILI CONFIRMATORY) Negative (Negative); URINE BILIRUBIN 2+ (Negative)
--- NOTE | 2018-10-01 15:43 | EKG ---
[place] [address] ELECTROCARDIOGRAM REPORT Name: FAHADTESSIE Room: [place] [address] ADM IN .R.#: [id number] Admission: 10/01/18 Attend Phys: Christen Sloan Discharge: Date of : 82 Report #: [id number] THIS REPORT FOR: //name// [facility] ED Test Date: 2018-10-01 Test Time: 07:09:43 Pat Name: TESSIE VÁSQUEZ Department: Room: [place] [address] Gender: F Urban Anthropologist: : 1980 Requested By: Judson Lorenz Order Number: [id number] Gladis MD: Albin Gray Measurements Intervals [place] Rate: 126 P: 38 DE: 134 QRS: -41 QRSD: 87 T: 88 QT: 299 QTc: 433 Interpretive Statements Sinus tachycardia Left axis deviation Low voltage, precordial leads Nonspecific T abnrm, anterolateral leads Compared to ECG 08/21/2018 11:48:52 Low QRS voltage now present Sinus rhythm no longer present Electronically Signed On 10-01-2018 15:43:33 CDT by Albin Gray [email or web address] <ELECTRONICALLY SIGNED> By: Albin Gray MD, FAC 10/01/18 1543 0709 0709 Albin Gray MD, [facility] /EPI
--- NOTE | 2018-10-01 15:45 | EKG ---
[place] [address] ELECTROCARDIOGRAM REPORT Name: FAHADTESSIE Room: [place] [address] ADM IN .R.#: [id number] Admission: 10/01/18 Attend Phys: Christen Sloan Discharge: Date of : 82 Report #: [id number] THIS REPORT FOR: //name// [facility] ED Test Date: 2018-10-01 Test Time: 11:34:51 Pat Name: TESSIE VÁSQUEZ Department: Room: [place] [address] Gender: F Pairer Inspector: SUNNY : 1980 Requested By: Judson Lorenz Order Number: [id number] MD: Albin Gray Measurements Intervals [place] Rate: 131 P: 51 NE: 135 QRS: -46 QRSD: 86 T: 102 QT: 286 QTc: 423 Interpretive Statements Sinus tachycardia Left anterior fascicular block Low voltage, precordial leads Nonspecific T abnrm, anterolateral leads Baseline wander in lead(s) V6 Compared to ECG 08/21/2018 11:48:52 Left anterior fascicular block now present Low QRS voltage now present Sinus rhythm no longer present Electronically Signed On 10-01-2018 15:45:38 CDT by Albin Gray [email or web address] <ELECTRONICALLY SIGNED> By: Albin Gray MD, [facility] 10/01/18 1545 1134 1134 Albin Gray MD, [facility] /EPI
[2018-10-02] VITALS (24 sets, daily range): BP systolic 94–121; BP diastolic 59–81
[2018-10-02 04:22] LABS: ABSOLUTE LYMPHOCYTES 1.4 thou/uL (0.8-5.3); ABSOLUTE MONOCYTES 1.3 thou/uL (0.0-1.2); ABSOLUTE NEUTROPHILS 10.1 thou/uL (1.6-8.1); BASOPHILS 0.3 %; EOSINOPHILS 0.1 %; HEMOGLOBIN 11.7 gm/dL (12.0-15.0); LYMPHOCYTES 11.1 %; MCH 30.2 pg (26.0-34.0); MCHC 30.8 g/dL (28.0-37.0); MONOCYTES 9.8 %; MPV 9.2 fl. (7.2-11.1); NUCLEATED RBCS 0 /100WBC; POLYS 78.7 %; RBC 3.87 mil/uL (4.20-5.00); RDW-CV 19.3 % (10.5-14.5); WBC 12.8 thou/uL (4.0-11.0)
[2018-10-02 05:01] LABS: MCV 98.1 fL (80.0-100.0); PLATELET COUNT* 125 thou/uL (150-400)
[2018-10-02 05:04] LABS: CALCIUM 7.1 mg/dL (8.5-10.1); CREATININE 0.9 mg/dL (0.6-1.3); MAGNESIUM 1.5 mg/dL (1.8-2.4)
[2018-10-02 05:30] LABS: POTASSIUM 4.8 mmol/L (3.5-5.1)
[2018-10-03] VITALS (14 sets, daily range): BP systolic 95–116; BP diastolic 66–86
[2018-10-03 04:12] LABS: ABSOLUTE BASOPHILS 0.1 thou/uL (0.0-0.2); ABSOLUTE EOSINOPHILS 0.1 thou/uL (0.0-0.7); ABSOLUTE LYMPHOCYTES 1.2 thou/uL (0.8-5.3); ABSOLUTE MONOCYTES 0.9 thou/uL (0.0-1.2); ABSOLUTE NEUTROPHILS 5.8 thou/uL (1.6-8.1); BASOPHILS 0.6 %; EOSINOPHILS 0.7 %; HEMATOCRIT 32.8 % (37.0-47.0); HEMOGLOBIN 10.9 gm/dL (12.0-15.0); MCH 29.9 pg (26.0-34.0); MCHC 33.2 g/dL (28.0-37.0); MONOCYTES 11.3 %; MPV 8.3 fl. (7.2-11.1); NUCLEATED RBCS 0 /100WBC; PLATELET COUNT* 117 thou/uL (150-400); POLYS 72.4 %; RBC 3.64 mil/uL (4.20-5.00); RDW-CV 18.3 % (10.5-14.5)
[2018-10-03 04:22] LABS: MCV 90.1 fL (80.0-100.0)
[2018-10-03 04:24] LABS: CALCIUM 6.9 mg/dL (8.5-10.1); CREATININE 0.7 mg/dL (0.6-1.3); MAGNESIUM 1.9 mg/dL (1.8-2.4); PHOSPHORUS* 3.2 mg/dL (2.5-4.9)
[2018-10-03 04:27] LABS: POTASSIUM 3.6 mmol/L (3.5-5.1)
[2018-10-04 07:55] VITALS: BP 119/86
[2018-10-04 15:00] VITALS: BP 121/78
[2018-10-04 20:00] VITALS: BP 115/81
[2018-10-05 08:10] VITALS: BP 127/89
[2018-10-05 16:23] VITALS: BP 123/89
[2018-10-05 20:00] VITALS: BP 117/86
[2018-10-06 08:20] VITALS: BP 120/87
[2018-10-06 16:56] VITALS: BP 121/84
[2018-10-07] VITALS: BP 129/90
[2018-10-07 04:00] VITALS: BP 123/93
[2018-10-07 05:27] LABS: CALCIUM 7.6 mg/dL (8.5-10.1); CREATININE 0.5 mg/dL (0.6-1.3); MAGNESIUM 1.7 mg/dL (1.8-2.4); POTASSIUM 4.7 mmol/L (3.5-5.1)
[2018-10-07 08:00] VITALS: BP 114/86
[2018-10-07] MEDS ORDERED: AUGMENTIN 875-1 EACH PO (08:10)
[2018-10-07] MEDS ORDERED: GAS RELIEF80 MG PO (08:10)
[2018-10-07] MEDS ORDERED: HYDROCODON-ACE1 EAC7 PO (08:10)
[2018-10-07 12:12] VITALS: BP 114/86
== END 2018-10-07 13:50 | disposition home or self-care (01) | DRG 329 ==
LOC: M.ERS 06:20 → M.ICU 10:22 → M.TBA-ER 10:22 → M.TBA 16:12 → M.ICU 20:12 → M.TBA 20:12 → M.ICU 20:30 → M.3W 10-03 19:07 → M.ORTHSURG 10-04 16:33
PROVIDERS: Internal Medicine; Personal Emergency Response Attendant; Surgery; ADMIT Internal Medicine
PROC: 0DNW4ZZ Release Peritoneum, Percutaneous Endoscopic Approach (ICD-10-PCS; principal; 2018-10-06)
PROC: 0DQA4ZZ Repair Jejunum, Percutaneous Endoscopic Approach (ICD-10-PCS; principal; 2018-10-06)
DX: K95.89 Other complications of other bariatric procedure (principal); E43 Unspecified severe protein-calorie malnutrition; K65.9 Peritonitis, unspecified; K91.71 Accidental puncture and laceration of a digestive system organ or structure during a digestive system procedure; R65.10 Systemic inflammatory response syndrome (SIRS) of non-infectious origin without acute organ dysfunction; Y83.8 Other surgical procedures as the cause of abnormal reaction of the patient, or of later complication, without mention of misadventure at the time of the procedure; Z79.899 Other long term (current) drug therapy; Z88.8 Allergy status to other drugs, medicaments and biological substances; Z90.49 Acquired absence of other specified parts of digestive tract; Z68.30 Body mass index [BMI] 30.0-30.9, adult; Y92.89 Other specified places as the place of occurrence of the external cause

== ENCOUNTER 2018-10-15 12:30 | Inpatient (IN) | payer OTHER ==
[~2018-10-15] VITALS: Ht 170.2 cm; Wt 82.6 kg
--- NOTE | ~2018-10-15 | CON ---
[address] [address] CONSULTATION Name: TESSIE VÁSQUEZ Room: [address] IN M.R.#: [id number] Admission: 10/15/18 Attend Phys: Laurent Urbina MD Discharge: Date of : 82 Report #: [id number] THIS REPORT FOR: //name// CC: Laurent Weeks DO Laurent Burns MD DICTATED BY: Bhavana Melara [facility] DATE OF SERVICE: 10/16/2018 Please note at the time of this dictation, the patient was seen and physically examined by myself. REASON FOR CONSULTATION: Liver dysfunction and elevated ammonia level. HISTORY OF PRESENT ILLNESS: This is a 38-year-old female who was recently seen by myself in the office for followup from her hospitalization back in July. During that hospitalization, she had numerous electrolyte and vitamin deficiencies and was recommended that she see bariatric surgeon for these. She did see Dr. Vamshi wilcox at [facility] the first part of September and underwent an EGD and she states that she was dilated at that time. Within a couple of days the next following day, she started having abdominal discomfort, which persisted. She presented here to the Emergency Room on 10/01/2018. CT scan was done and it showed some free air in her abdomen. She was taken to surgery by Dr. Gareth Burns and a perforation was noted at the gastrojejunostomy area. Closure of the perforation was performed as well as lysis of numerous adhesions. She did have a drain that was placed at that time, but has since removed. The patient states, since the removal of that drain, she has continued to have ongoing drainage saturating her clothing. She states it is fairly clear, but ongoing. She was staying with her parents after the surgery and her mother began noticing that she was sleeping a lot and then on Sunday of this week, she noticed that she was not talking correctly and really has not been eating very much either. Prompting them to bring her in to the Emergency Room yesterday. When she was brought to the Emergency Room, she was noted to be encephalopathic and having some nausea and vomiting as well as abdominal pain and a lot of output drainage from her old ELIAS site. PAST MEDICAL HISTORY: Hepatic steatosis. PAST SURGICAL HISTORY: Recent gallbladder surgery earlier this year, she has had gastric bypass in 2011 and then a revision of her bypass back in 2013 down in [place], with her recent small bowel perforation [place] [address] CONSULTATION Name: TESSIE VÁSQUEZ Room: [address]#: [id number] Admission: 10/15/18 Attend Phys: Laurent Urbina MD Discharge: Date of : 82 Report #: [id number] FAMILY HISTORY: Noncontributory. SOCIAL HISTORY: She lives by herself. Denies any alcohol, tobacco or illegal drug use. ALLERGIES: NSAIDS. MEDICATIONS: From home, vitamin B12, iron, Synthroid, doxepin, Carafate, folic acid, Protonix, vitamin D3, Xifaxan, zinc, Aldactone, and Xanax. REVIEW OF SYSTEMS: A 12-point review of systems is essentially negative except what is mentioned in the HPI. PHYSICAL EXAMINATION: VITAL SIGNS: Temperature 36.9, pulse 110, respirations 14, and blood pressure 104/74. HEART: Regular rate and rhythm, somewhat tachycardic. LUNGS: Diminished, but clear. ABDOMEN: Diffuse tenderness throughout with more tenderness over the old ELIAS site that is draining. LABORATORY DATA: Hemoglobin is 10.4, white count is 17.1, platelets 223. MCV is 91.6. GFR is 51 and her RDW was 20.5. PT is 13.8 and INR 1.3. Total bilirubin 1.2, alkaline phosphatase 187, ALT 62, and AST is 57. Total protein is 4.8 and albumin is 1.1. It was also noted her ammonia level was [address] of the abdomen and pelvis showed diffuse hepatic steatosis, bowel wall thickening at the hepatic flexure and small bowel thickening noted and a small amount of ascites in the right pericolonic gutter is noted as well. The patient did attempt to have a GET done earlier this month, but was unsuccessful due to vomiting. IMPRESSION: 1. Nausea and vomiting. 2. Abdominal pain. 3. Chronic anemia. 4. Leukocytosis. 5. Hepatic steatosis. 6. Encephalopathy. 7. Malnourished, low albumin and low protein. 8. Recent bowel perforation status post closure. PLAN: 1. We will add a scopolamine patch. 2. No GI interventions at this time. 3. We will await Dr. Gareth Burns's input. 4. Further recommendations to be made after Dr. [place] [address] CONSULTATION Name: TESSIE VÁSQUEZ Room: [address] IN .R.#: [id number] Admission: 10/15/18 Attend Phys: Laurent Urbina MD Discharge: Date of : 82 Report #: [id number] today. Thank you for allowing us to participate in this patient's care. Please do not hesitate to call with any questions in regard to this consult. By: 1126 Pieter Craig DO /ary
[~2018-10-15 12:30] MED LIST changes: +AUGMENTIN 875-1 EACH PO; +GAS RELIEF80 MG PO; +HYDROCODON-ACE1 EAC7 PO
[2018-10-15 12:39] VITALS: BP 117/81
[2018-10-15 14:00] LABS: HEMATOCRIT 32.7 % (37.0-47.0); MCH 30.3 pg (26.0-34.0); MCHC 33.7 g/dL (28.0-37.0); MCV 90.1 fL (80.0-100.0); MPV 7.9 fl. (7.2-11.1); NUCLEATED RBCS 0 /100WBC; PLATELET COUNT* 270 thou/uL (150-400); RBC 3.63 mil/uL (4.20-5.00); RDW-CV 20.5 % (10.5-14.5); WBC 14.8 thou/uL (4.0-11.0)
[2018-10-15 14:13] LABS: CALCIUM 7.9 mg/dL (8.5-10.1); CREATININE 1.1 mg/dL (0.6-1.3); POTASSIUM 4.5 mmol/L (3.5-5.1)
[2018-10-15 14:17] LABS: ALBUMIN 1.2 g/dL (3.4-5.0); TOTAL BILIRUBIN 1.5 mg/dL (<0.1-1.0); TOTAL PROTEIN 5.1 g/dL (6.4-8.2)
[2018-10-15 14:27] LABS: ABSOLUTE EOSINOPHILS 0.4 thou/uL (0.0-0.7); ABSOLUTE LYMPHOCYTES 1.5 thou/uL (0.8-5.3); ABSOLUTE MONOCYTES 0.4 thou/uL (0.0-1.2); ABSOLUTE NEUTROPHILS 12.4 thou/uL (1.6-8.1); PLATELET ESTIMATE ADEQUATE
[2018-10-15 15:11] LABS: APTT 33.4 Seconds (25.0-31.3); INR 1.3; PROTIME 13.3 Seconds (9.20-11.50)
[2018-10-15 16:08] LABS: URINE BILIRUBIN NEGATIVE (Negative); URINE BLOOD TRACE (Negative); URINE CLARITY CLEAR; URINE COLOR YELLOW; URINE GLUCOSE-RANDOM NEGATIVE (Negative); URINE KETONES NEGATIVE (Negative); URINE LEUKOCYTES-REFLEX 1+ (Negative); URINE NITRITE-REFLEX NEGATIVE (Negative); URINE PROTEIN NEGATIVE (Negative); URINE UROBILINOGEN 0.2 E.U./dl (0.2-1.0)
[2018-10-15 16:13] LABS: SQUAMOUS >10 Many /LPF (0-3)
[2018-10-15 16:15] LABS: AMP/METHAMP Negative (Negative); BARBITURATES Negative (Negative); BENZODIAZEPINES POSITIVE (Negative); COCAINE Negative (Negative); METHADONE Negative (Negative); OPIATES Negative (Negative); PCP Negative (Negative); THC Negative (Negative)
[2018-10-15 16:16] LABS: BACTERIA-REFLEX 1-9 Few /HPF (None Seen); HYALINE CASTS 0-3 Few /LPF (None Seen); YEAST-REFLEX Present (None Seen)
[2018-10-15 16:17] LABS: CRYSTALS None Seen /LPF (None Seen); MUCUS None Seen strn/LPF (None Seen); URINE RBC 0-2 Rare /HPF (0-2); URINE WBC-REFLEX 6-15 Few /HPF (0-5)
[2018-10-15 18:29] VITALS: BP 102/61
[2018-10-15 18:50] VITALS: BP 112/80
[2018-10-15 21:30] VITALS: BP 110/68
[2018-10-16 04:06] LABS: HEMATOCRIT 30.9 % (37.0-47.0); HEMOGLOBIN 10.4 gm/dL (12.0-15.0); INR 1.3; MCH 30.8 pg (26.0-34.0); MCHC 33.7 g/dL (28.0-37.0); MCV 91.6 fL (80.0-100.0); MPV 7.7 fl. (7.2-11.1); PROTIME 13.8 Seconds (9.20-11.50); RBC 3.37 mil/uL (4.20-5.00); RDW-CV 20.5 % (10.5-14.5); WBC 17.1 thou/uL (4.0-11.0)
[2018-10-16 04:11] LABS: ALBUMIN 1.1 g/dL (3.4-5.0); CALCIUM 7.1 mg/dL (8.5-10.1); CREATININE 1.2 mg/dL (0.6-1.3); MAGNESIUM 1.3 mg/dL (1.8-2.4); POTASSIUM 4.8 mmol/L (3.5-5.1); TOTAL BILIRUBIN 1.2 mg/dL (<0.1-1.0); TOTAL PROTEIN 4.8 g/dL (6.4-8.2)
[2018-10-16 07:56] VITALS: BP 104/74
[2018-10-16 16:00] VITALS: BP 88/54
[2018-10-16 21:30] VITALS: BP 102/58
[2018-10-17 04:26] LABS: ALBUMIN 1.2 g/dL (3.4-5.0); CALCIUM 7.4 mg/dL (8.5-10.1); CREATININE 1.4 mg/dL (0.6-1.3); MAGNESIUM 3.2 mg/dL (1.8-2.4); POTASSIUM 4.7 mmol/L (3.5-5.1); TOTAL BILIRUBIN 1.2 mg/dL (<0.1-1.0)
[2018-10-17 21:25] VITALS: BP 98/48
[2018-10-18 04:22] LABS: INR 1.3; PROTIME 13.8 Seconds (9.20-11.50)
[2018-10-18 08:00] VITALS: BP 106/55
[2018-10-18 08:37] LABS: CALCIUM 8.2 mg/dL (8.5-10.1); CREATININE 1.9 mg/dL (0.6-1.3); MAGNESIUM 2.6 mg/dL (1.8-2.4); POTASSIUM 5.5 mmol/L (3.5-5.1)
[2018-10-18 16:30] VITALS: BP 135/81
[2018-10-18 20:30] VITALS: BP 87/52
[2018-10-19] VITALS: BP 103/33
[2018-10-19 00:23] LABS: HEMATOCRIT 32.1 % (37.0-47.0); HEMOGLOBIN 11.2 gm/dL (12.0-15.0); MCH 31.8 pg (26.0-34.0); MCHC 34.7 g/dL (28.0-37.0); MCV 91.6 fL (80.0-100.0); MPV 9.3 fl. (7.2-11.1); RBC 3.5 mil/uL (4.20-5.00); RDW-CV 21.5 % (10.5-14.5); WBC 19.7 thou/uL (4.0-11.0)
[2018-10-19 00:45] LABS: CALCIUM 7.8 mg/dL (8.5-10.1); POTASSIUM 5.2 mmol/L (3.5-5.1)
[2018-10-19 00:50] LABS: ALBUMIN 1.3 g/dL (3.4-5.0); TOTAL BILIRUBIN 1.2 mg/dL (<0.1-1.0); TOTAL PROTEIN 5.2 g/dL (6.4-8.2)
[2018-10-19 04:00] VITALS: BP 117/68
[2018-10-19 08:00] VITALS: BP 98/47
[2018-10-19 11:03] LABS: URINE BLOOD NEGATIVE (Negative); URINE CLARITY SL CLOUDY; URINE COLOR BROWN; URINE GLUCOSE-RANDOM NEGATIVE (Negative); URINE KETONES TRACE (Negative); URINE LEUKOCYTES-REFLEX TRACE (Negative); URINE NITRITE-REFLEX NEGATIVE (Negative); URINE PROTEIN TRACE (Negative); URINE UROBILINOGEN 0.2 E.U./dl (0.2-1.0)
[2018-10-19 11:05] LABS: ICTOTEST (BILI CONFIRMATORY) Negative (Negative); URINE BILIRUBIN 1+ (Negative)
[2018-10-19 11:07] LABS: SQUAMOUS >10 Many /LPF (0-3)
[2018-10-19 11:12] LABS: TRANSITIONAL EPITHEL CELL 4-10 Moderate /LPF (None Seen)
[2018-10-19 11:14] LABS: CRYSTALS None Seen /LPF (None Seen); HYALINE CASTS >10 Many /LPF (None Seen); MUCUS 0-3 Light strn/LPF (None Seen); URINE RBC 0-2 Rare /HPF (0-2); URINE WBC-REFLEX 0-5 Rare /HPF (0-5); YEAST-REFLEX Present (None Seen)
[2018-10-19 14:53] LABS: URINE CHLORIDE-RANDOM* 27 mmol/L; URINE POTASSIUM-RANDOM 29.7 mmol/L
[2018-10-19 16:30] VITALS: BP 121/46
[2018-10-19 17:12] LABS: SMEAR FOR EOSINOPHILS No Eosinophils Seen
[2018-10-19 21:00] VITALS: BP 130/66
[2018-10-20 11:38] LABS: CALCIUM 7.9 mg/dL (8.5-10.1); MAGNESIUM 2.3 mg/dL (1.8-2.4); POTASSIUM 5.3 mmol/L (3.5-5.1)
[2018-10-20 16:30] VITALS: BP 129/64
[2018-10-20 19:45] VITALS: BP 84/34
[2018-10-20 21:30] VITALS: BP 103/54
[2018-10-20 23:00] VITALS: BP 98/49
[2018-10-21 01:00] VITALS: BP 101/49
== END 2018-10-21 01:19 | disposition short-term general hospital (02) | DRG 862 ==
LOC: M.ERS 12:30 → M.TBA-ER 15:27 → M.ORTHSURG 15:27
PROVIDERS: Family Medicine; Internal Medicine Gastroenterology; Nurse Practitioner Family; ADMIT Internal Medicine
DX: T81.41XA Infection following a procedure, superficial incisional surgical site, initial encounter (principal); E43 Unspecified severe protein-calorie malnutrition; N17.0 Acute kidney failure with tubular necrosis; B99.8 Other infectious disease; Y83.8 Other surgical procedures as the cause of abnormal reaction of the patient, or of later complication, without mention of misadventure at the time of the procedure; K72.90 Hepatic failure, unspecified without coma; F41.1 Generalized anxiety disorder; E03.9 Hypothyroidism, unspecified; K75.81 Nonalcoholic steatohepatitis (NASH); K52.9 Noninfective gastroenteritis and colitis, unspecified; E61.0 Copper deficiency; Z68.28 Body mass index [BMI] 28.0-28.9, adult; R62.7 Adult failure to thrive; Z88.6 Allergy status to analgesic agent; Y92.89 Other specified places as the place of occurrence of the external cause; Z82.49 Family history of ischemic heart disease and other diseases of the circulatory system; Z98.84 Bariatric surgery status

== ENCOUNTER 2020-09-01 10:28 | Emergency (ER) | payer OTHER ==
[~2020-09-01] VITALS: Ht 170.2 cm; Wt 93.4 kg
[2020-09-01] MEDS ORDERED: CORRECTOL5 M1 PO (10:42)
[2020-09-01] MEDS ORDERED: LASIX 40 MG TAB40 MG PO (10:42)
[2020-09-01] MEDS ORDERED: AMITRIPTYLINE H10 M1 PO (10:43)
[2020-09-01] MEDS ORDERED: SERTRALINE HCL100 MG PO (10:43)
[2020-09-01] MEDS ORDERED: CONCERTA ER 1818 MG PO (10:43)
[2020-09-01] MEDS ORDERED: NEURONTIN100 MG PO (10:43)
[2020-09-01 11:03] LABS: RBC 3.45 mil/uL (4.20-5.00)
[2020-09-01 11:06] LABS: HEMATOCRIT 35.1 % (37.0-47.0); HEMOGLOBIN 11.8 gm/dL (12.0-15.0); MCH 34.2 pg (26.0-34.0); MCHC 33.6 g/dL (28.0-37.0); MPV 8.2 fl. (7.2-11.1); NUCLEATED RBCS 0 /100WBC; PLATELET COUNT* 195 thou/uL (150-400); RDW-CV 16.6 % (10.5-14.5)
[2020-09-01 11:17] LABS: APTT 26.5 Seconds (25.0-31.3); INR 1.3; PROTIME 13.4 Seconds (9.20-11.50)
[2020-09-01 11:31] LABS: CALCIUM 7.4 mg/dL (8.5-10.1); CREATININE 0.9 mg/dL (0.6-1.3)
[2020-09-01 11:32] LABS: POTASSIUM 2.7 mmol/L (3.5-5.1)
[2020-09-01 11:39] LABS: ABSOLUTE LYMPHOCYTES 2.8 thou/uL (0.8-5.3); ABSOLUTE MONOCYTES 0.3 thou/uL (0.0-1.2); ABSOLUTE NEUTROPHILS 4.9 thou/uL (1.6-8.1); PLATELET ESTIMATE ADEQUATE
[2020-09-01 11:41] LABS: ALBUMIN 1.5 g/dL (3.4-5.0); TOTAL BILIRUBIN 1.2 mg/dL (<0.1-1.0); TOTAL PROTEIN 5.1 g/dL (6.4-8.2)
[2020-09-01 11:46] LABS: URINE BILIRUBIN NEGATIVE (Negative); URINE BLOOD NEGATIVE (Negative); URINE CLARITY CLEAR; URINE COLOR YELLOW; URINE GLUCOSE-RANDOM NEGATIVE (Negative); URINE KETONES NEGATIVE (Negative); URINE LEUKOCYTES-REFLEX TRACE (Negative); URINE NITRITE-REFLEX NEGATIVE (Negative); URINE PROTEIN NEGATIVE (Negative); URINE SPECIFIC GRAVITY <= 1.005 (1.005-1.030)
[2020-09-01 11:54] LABS: BACTERIA-REFLEX 1-9 Few /HPF (None Seen); CASTS None Seen /LPF (None Seen); CRYSTALS None Seen /LPF (None Seen); SQUAMOUS 0-3 Few /LPF (0-3); URINE RBC 0-2 Rare /HPF (0-2); URINE WBC-REFLEX 0-5 Rare /HPF (0-5)
[2020-09-01 14:31] VITALS: BP 100/72
--- NOTE | 2020-09-01 14:49 | EKG ---
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: : 1980 Requested By: Lázaro Velasquez Order Number: [id number] MD: Corbin Boston Measurements Intervals [place] Rate: 103 P: 30 WI: 131 QRS: -47 QRSD: 93 T: 59 QT: 375 QTc: 491 Interpretive Statements Sinus tachycardia Left anterior fascicular block Abnormal lateral Q waves Anterior infarct, old possible Baseline wander in lead(s) I,II,aVR,aVF,V4 Compared to ECG 10/01/2018 11:34:51 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
== END 2020-09-01 14:31 | disposition short-term general hospital (02) ==
LOC: M.ERS 10:28
PROVIDERS: Family Medicine
DX: S12.401A Unspecified nondisplaced fracture of fifth cervical vertebra, initial encounter for closed fracture (principal); R53.1 Weakness; E87.6 Hypokalemia; N39.0 Urinary tract infection, site not specified; E03.9 Hypothyroidism, unspecified; Z88.6 Allergy status to analgesic agent; Z79.899 Other long term (current) drug therapy; W18.30XA Fall on same level, unspecified, initial encounter; Y93.89 Activity, other specified; Y92.89 Other specified places as the place of occurrence of the external cause; Y99.9 Unspecified external cause status